=== PATIENT | female | born 1940 | race Caucasian/White ===

== ENCOUNTER 2018-11-10 04:36 | Inpatient (IN) ==
[2018-11-10] MEDS ORDERED: Ipratropium/Albuterol Neb 3 ML IH ONE ×2 (04:44→04:52)
[2018-11-10] MEDS ORDERED: Ipratropium/Albuterol Neb 3 ML ONE (04:52)
[2018-11-10] MEDS ORDERED: methylPREDNISolone 125 MG/2 ML VIAL IVP ONE (05:05)
[2018-11-10 05:19] LABS: Basophils % 0.4 %; Eosinophils # 0.2 K/mcL (0.0-0.6); Hemoglobin 13.4 g/dL (11.5-15.4); Immature Granulocytes % 0.4 % (0-4); Lymphocytes # 1.9 K/mcL (0.6-4.6); Lymphocytes % 22.5 %; Mean Corpuscular HGB Conc 31.9 g/dL (31.6-35.5); Mean Corpuscular Hemoglobin 30.9 pg (28.0-33.3); Mean Corpuscular Volume 96.8 fL (83.0-100.0); Mean Platelet Volume 9.5 fL (9.4-12.4); Monocytes # 0.5 K/mcL (0.0-1.3); Monocytes % 6.2 %; Neutrophils # 5.8 K/mcL (1.6-8.9); Platelet Count 200 K/mcL (140-400); Red Blood Count 4.34 M/mcL (3.82-4.97); Red Cell Distribution Width 12.9 % (11.5-14.5); Segmented Neutrophils % 68.5 %
[2018-11-10 05:22] LABS: VBG HCO3 31 mEq/L (21-27); VBG PCO2 62 mmHg (41-51); VBG PH 7.31 pH Units (7.32-7.42); VBG PO2 129 mmHg (25-50)
--- NOTE | 2018-11-10 05:39 | Emergency Department Note ---
Disposition Clinical Impression: NSTEMI (non-ST elevated myocardial infarction), Acute exacerbation of chronic obstructive airways disease Disposition: Admitted As Inpatient Condition: Fair General Adult HPI - General Chief complaint: ED Shortness of Breath/Dyspnea Stated complaint: NICOL Time Seen by Provider: 11/10/18 04:39 Source: patient, EMS Limitations: no limitations Nursing Notes Reviewed: Yes Vital Signs Reviewed: Yes - History of Present Illness HPI Narrative: 78-year-old female with history of COPD, cardiac stent and lung cancer presenting via EMS with shortness of breath. The patient states over the past 2 days she has had worsening of her shortness of breath, requiring increase in her home oxygen. She is only on oxygen at night but has felt more short of breath throughout the day. In route EMS gave her 2 albuterol nebulizers taking her oxygen saturation from 74-98. She does admit to back pain between her shoulder blades which worsens with movement. She describes it as sharp. Otherwise she denies any fever, chills, cough, congestion chest pain, nausea, vomiting, diarrhea, dysuria, hematuria, abdominal pain. Pain Scale: 5 - Related Data Home Medications Medication Instructions Recorded Confirmed Albuterol Sulfate [Albuterol 2 puff IH Q4HR PRN 05/17/16 11/10/18 Inhaler] Ergocalciferol (VITAMIN D2) 2,000 unit PO DAILY 05/17/16 11/10/18 [Vitamin D2] Fluticasone/Salmeterol [Advair 1 puff IH Q12H 05/17/16 11/10/18 250-50 Diskus] Oxycodone HCl/Acetaminophen 1 tab PO Q8H PRN 05/17/16 11/10/18 [Percocet 5-325 mg Tablet] RX: Aspirin 81 mg PO DAILY 05/17/16 11/10/18 raNITIdine HCl [Zantac] 150 mg PO DAILY PRN 05/17/16 11/10/18 Acetaminophen [Tylenol] 325 - 650 mg PO Q6HR PRN 11/22/17 11/10/18 Metoprolol Succinate [Toprol Xl] 50 mg PO DAILY 11/10/18 11/10/18 RX: Torsemide [Demadex] 20 mg PO DAILY 11/10/18 11/10/18 Allergies Allergy/AdvReac Type Severity Reaction Status Date / Time fish oil Allergy Rash Verified 06/05/18 10:42 influenza virus vaccine ts Allergy Anaphylaxis Verified 06/05/18 10:42 [id number] (36 mos,up) [From Fluarix] mannitol [From Reclast] Allergy Hives Verified 06/05/18 10:42 Neomycin Allergy Rash Verified 06/05/18 10:42 NSAIDS (Non-Steroidal Allergy Rash Verified 06/05/18 10:42 Anti-Inflamma Penicillins [PCN] Allergy Rash Verified 06/05/18 10:42 sulfamethoxazole Allergy Rash Verified 06/05/18 10:42 [From Bactrim] trimethoprim [From Bactrim] Allergy Rash Verified 06/05/18 10:42 water for injection,sterile Allergy Hives Verified 06/05/18 10:42 [From Reclast] zoledronic acid Allergy Hives Verified 06/05/18 10:42 [From Reclast] simvastatin [From Zocor] AdvReac Cramping Verified 06/05/18 10:42 of the Muscles All systems ED: reviewed and negative except as stated. Review of Systems: As Per HPI Constitutional: Denies: fever, chills, weakness, weight change Eyes: Denies: eye pain, eye discharge, vision change Cardiovascular: Reports: dyspnea on exertion. Denies: chest pain, palpitations, edema, syncope Respiratory: Reports: dyspnea. Denies: cough, wheezes, hemoptysis, stridor, sputum production Gastrointestinal: Denies: abdominal pain, nausea, vomiting, diarrhea, constipation, hematemesis, melena, hematochezia Genitourinary: Denies: dysuria, frequency, hematuria, discharge Musculoskeletal: Reports: back pain. Denies: neck pain, joint swelling Integumentary: Denies: rash, abrasion, lesions Neurological: Denies: headache, weakness, numbness, paresthesias Psychiatric: Denies: anxiety, depression, suicidal thoughts, homicidal thoughts, auditory hallucinations, visual hallucinations Endocrine: Denies: fatigue Past Medical History - Past Medical History Medical history: Reports: arthritis, cancer Surgical history: Reports: cholecystectomy, hysterectomy, orthopedic, other Psychiatric history: Reports: no psych history - Social History Smoking Status: Current some day smoker Smokeless Tobacco Status: No Alcohol use: Reports: none, heavy Drug use: Reports: none Physical Exam Patient is significantly tachypnic and working hard to breathe. She is able to complete only a few words for positive to catch her breath. She is currently on oxygen mask and status post 2 DuoNeb treatments. - General Limitations: no limitations General appearance: alert, anxious, in distress - Head Head exam: atraumatic, normocephalic - Eye Eye exam: Present: normal appearance, PERRL - ENT ENT exam: normal exam, normal oropharynx, mucous membranes moist - Neck Neck exam: Present: normal inspection, full ROM, trachea midline - Chest Chest inspection: Present: normal inspection, symmetric chest wall rise. Absent: tenderness, rash - Respiratory Respiratory exam: Present: respiratory distress, wheezes, accessory muscle use, prolonged expiratory phase - Cardiovascular Cardiovascular exam: Present: regular rate, normal rhythm, normal heart sounds - Abdominal Exam Abdominal exam: Present: soft, Non-Tender. Absent: distention, guarding, rebound, rigidity Course Vital Signs Temperature 98.3 F 11/10/18 04:43 Pulse Rate 119 11/10/18 04:43 Respiratory Rate 30 11/10/18 04:43 Blood Pressure 201/110 11/10/18 04:43 O2 Sat by Pulse Oximetry 100 11/10/18 04:43 Temperature 98.3 F 11/10/18 04:43 Pulse Rate 102 11/10/18 07:31 Respiratory Rate 17 11/10/18 07:31 Blood Pressure 121/62 11/10/18 07:31 O2 Sat by Pulse Oximetry 96 11/10/18 07:31 Oxygen Delivery Oxygen Delivery Bipap Medical Decision Making - [facility] Narrative Medical decision making narrative: 78-year-old female with history of lung cancer, cardiac stent, and COPD who presents the emergency department with complaints of shortness of breath. She does have chest pain as well. She is severely tachypnic on initial presentation and working hard to breathe. Initiated 3 duo nebs as well as BiPAP. Cardiac workup including EKG, chest x-ray, and troponin obtained which revealed elevated troponin to 0.10. EKG does show ST depressions in lateral leads. Do believe the patient has a COPD exacerbation with concomitant STEMI versus demand ischemia. Initiated 325 mg aspirin and heparin to cover for ACS. She will require admission for continued workup of her's likely COPD exacerbation, started azithromycin. Discussed the findings with on-call hospitalist who admits the patient. Patient agrees with and understands course of treatment plan including plan for admission. All questions answered. - Lab Data Result diagrams: 11/10/18 05:06 11/10/18 05:06 Lab Results 11/10/18 11/10/18 11/10/18 Range/Units 05:06 05:06 05:17 WBC 8.4 (4.3-11.1) K/mcL RBC 4.34 (3.82-4.97) M/mcL Hgb 13.4 (11.5-15.4) g/dL Hct 42.0 (35.3-44.9) % MCV 96.8 (83.0-100.0) fL MCH 30.9 (28.0-33.3) pg MCHC 31.9 (31.6-35.5) g/dL RDW 12.9 (11.5-14.5) % Plt Count 200 (140-400) K/mcL MPV 9.5 (9.4-12.4) fL Immature Gran % 0.4 (0-4) % Seg Neutrophils % 68.5 % Lymphocytes % 22.5 % Monocytes % 6.2 % Eosinophils % 2.0 % Basophils % 0.4 % Neutrophils # 5.8 (1.6-8.9) K/mcL Lymphocytes # 1.9 (0.6-4.6) K/mcL Monocytes # 0.5 (0.0-1.3) K/mcL Eosinophils # 0.2 (0.0-0.6) K/mcL Basophils # 0.0 (0.0-0.2) K/mcL PT (9.4-12.1) Seconds INR Heparin Anti-Xa, Unfract (0.30-0.70) IU/mL VBG pH 7.31 L (7.32-7.42) pH Units VBG pCO2 62 H (41-51) mmHg VBG pO2 129 H (25-50) mmHg VBG HCO3 31 H (21-27) mEq/L Sodium 141 (136-145) mEq/L Potassium 4.0 (3.5-5.1) mEq/L Chloride 104 (98-107) mEq/L Carbon Dioxide 29 (23-29) mEq/L BUN 20 (8-23) mg/dL Creatinine 1.19 (0.60-1.20) mg/dL Est GFR ( Amer) 53 L (> 60) Est GFR (Non-Af Amer) 44 L (> 60) BUN/Creatinine Ratio 17 (6-26) Glucose 155 H (70-105) mg/dL Calculated Osmolality 298 (280-300) Calcium 9.3 (8.6-10.3) mg/dL Magnesium 1.9 (1.6-2.6) mg/dL Troponin I 0.10 H* (< 0.04) ng/mL 11/10/18 Range/Units 06:57 WBC (4.3-11.1) K/mcL RBC (3.82-4.97) M/mcL Hgb (11.5-15.4) g/dL Hct (35.3-44.9) % MCV (83.0-100.0) fL MCH (28.0-33.3) pg MCHC (31.6-35.5) g/dL RDW (11.5-14.5) % Plt Count (140-400) K/mcL MPV (9.4-12.4) fL Immature Gran % (0-4) % Seg Neutrophils % % Lymphocytes % % Monocytes % % Eosinophils % % Basophils % % Neutrophils # (1.6-8.9) K/mcL Lymphocytes # (0.6-4.6) K/mcL Monocytes # (0.0-1.3) K/mcL Eosinophils # (0.0-0.6) K/mcL Basophils # (0.0-0.2) K/mcL PT 11.0 (9.4-12.1) Seconds INR 1.0 Heparin Anti-Xa, Unfract 0.05 L (0.30-0.70) IU/mL VBG pH (7.32-7.42) pH Units VBG pCO2 (41-51) mmHg VBG pO2 (25-50) mmHg VBG HCO3 (21-27) mEq/L Sodium (136-145) mEq/L Potassium (3.5-5.1) mEq/L Chloride (98-107) mEq/L Carbon Dioxide (23-29) mEq/L BUN (8-23) mg/dL Creatinine (0.60-1.20) mg/dL Est GFR ( Amer) (> 60) Est GFR (Non-Af Amer) (> 60) BUN/Creatinine Ratio (6-26) Glucose (70-105) mg/dL Calculated Osmolality (280-300) Calcium (8.6-10.3) mg/dL Magnesium (1.6-2.6) mg/dL Troponin I (< 0.04) ng/mL - Radiology Data Radiology results reviewed: Yes I reviewed the patient's radiology results. Chest X-Ray 11/10/18 04:47 IMPRESSION: No acute disease identified. D/ / Augustin Camara MD / Augustin Camara MD Interpreting Provider: Augustin Camara MD - EKG Data EKG #1 EKG attestation: Yes I reviewed and interpreted this EKG. EKG results narrative: Sinus tachycardia rate of 1:15. Normal axis. HI 44, QRS 84, QT 324, QTC 449. No evidence of acute ST elevation but there are slight ST depressions in lateral leads. Attestation Statement - Attestation Attestation: Resident Attestation: I examined this patient and my medical decision making was reviewed with the Resident Physician. I agree with the documented findings, disposition and treatment plan as described except to the extent set forth below. We independently had [id number] contact with the patient. 78-year-old female with a history of COPD as well as previous cardiac stent and lobectomy presenting for evaluation of shortness of breath but is been worsening over the last several days area and increasing home oxygen requirement which she typically just wears at night. Complains of chest pain earlier in the day. Patient undergoing workup for COPD exacerbation. Moderate respiratory distress with increased work of breathing and diffuse wheezing with overall decreased air movement bilaterally. No significant peripheral edema. Regular rhythm. Patient was found to have an elevated troponin. EKG has changes within the lateral leads. Given the EKG changes and troponin cardiology was consulted. Patient was placed on heparin and admitted to the hospital service. Heart Score - Score History: Moderately Suspicious EKG: Non Specific repolarisation Disturbance Age: Greater than 65 Risk Factors: Equal/Greater than 3 risk factor or history of atherosclerotic disease Troponin: 1-3x normal limit HEART Score Total: 7
[2018-11-10 05:43] LABS: Calcium 9.3 mg/dL (8.6-10.3); Magnesium 1.9 mg/dL (1.6-2.6); Troponin I 0.1 ng/mL (< 0.04)
[2018-11-10] MEDS ORDERED: *HR* Heparin 5,000 UNIT/ML VIAL IVP STA (05:56)
[2018-11-10] MEDS ORDERED: Aspirin 81 MG TAB.CHEW PO STA (05:56)
[2018-11-10] MEDS ORDERED: *HR* Heparin 5,000 UNIT/ML VIAL IVP PRN ×2 (06:49)
[2018-11-10] MEDS ORDERED: *HR* Heparin 5,000 UNIT/ML VIAL IVP ONE (06:49)
[2018-11-10] MEDS ORDERED: Heparin 25,000 UNIT/500 ML D5W 25,000 UNIT/500 ML BAG IVC SCH (07:00)
[2018-11-10 07:16] LABS: Heparin anti-factor XA UFH 0.05 IU/mL (0.30-0.70)
--- NOTE | 2018-11-10 07:35 | Internal Med History&Physical ---
"Date of Encounter: 11/10/18 Time of Encounter: 09:58 Internal Medicine - H&P: HPI Chief complaint: dyspnea Admitted From: Emergency Dept History of present illness: 78-year-old woman with oxygen dependent COPD, CAD s/p prior PCI, and lung cancer in remission presented via EMS with worsening dyspnea for the last 2 days, requiring increase in her home oxygen, and has been associated with cough with small amount of yellow sputum for 1 day. Also has mild rhinorrhea and transient headache. Symptoms are similar to prior COPD exacerbations. Her O2 sat was 70% for EMS, received multiple bronchodilator nebulizations, and was placed on BiPAP in ER. Her symptoms have improved since arrival to ER and was put on O2 by face mask. On review of systems, she reported that she had mild chest pressure for the last 1 week, which was different in character than her prior anginal symptoms prior to PCI, and has resolved since arrival to the hospital. A 10-point ROs is otherwise negative for headache, dizziness, fevers, chills, n, v, abd pain, d, c, dysuria, focal motor deficits or other symptoms. # Acute on chronic hypoxic resp failure # AECOPD # Active smoker, 0.5 PPD # Hx lung cancer in remission - WBC 8k, CXR no acute abnormality - VBG 7.31 | 62 - Cr 1.1 - Continuous pulse oximetry - Supplemental oxygen and NIPPV with BiPAP as needed - Emanuel q4h today and prn bronchodilator nebulizations - IV Solumedrol, can likely switch to PO prednisone in 1-2 days - Cont azithromycin, oral - resp viral panel, sputum cultures - if no improvement, may need pulm consult # CAD s/p PCI # Non-STEMI, likely type II due to hypoxia, cannot r/o type 1 considering Hx CAD # Transient chest pressure, now resolved - EKG with subtle STD in lateral leads - Troponin 0.1 @ 0500, check serial - repeat EKG - cont ASA 81 - cont metoprolol XL at half the home dose (50 --> 25 mg), can consider switching to carvedilol if it appears to contribute to bronchospasm - cont heparin gtt - considering multiple allergies and acute resp issues, will not start a new medicine / statin at this time, if it appears to be type 1, then will reassess and reconsider - check echo - cardiology consult # GERD Hold ranitidine - Oral PPI while on steroids in hospital # Leg swelling - Hod torsemide today in the setting of acute illness and dry oral mucosa, reassess tomorrow # VTE prophylaxis heparin gtt # Goals of care: Discussed with pt, full code but would not like to have a long code if she is not expected to have a reasonable QoL Past Med Surg Social Fam HX - Past Medical History Medical history: arthritis, cancer Additional medical history: lung cancer Psychiatric history: no psych history - Past Surgical History Surgical History: cholecystectomy, hysterectomy, orthopedic, other Additional surgical history: right upper lung lobectomy - Social History Smoking Status: Current some day smoker Smokeless Tobacco Status: No Alcohol use: none, heavy Drug use: none Internal Medicine - H&P: Meds Albuterol Sulfate [Albuterol Inhaler] 2 puff IH Q4HR PRN 05/17/16 [History] Aspirin 81 mg PO DAILY 05/17/16 [History] Ergocalciferol (VITAMIN D2) [Vitamin D2] 2,000 unit PO DAILY 05/17/16 [History] Fluticasone/Salmeterol [Advair 250-50 Diskus] 1 puff IH Q12H 05/17/16 [History] Oxycodone HCl/Acetaminophen [Percocet 5-325 mg Tablet] 1 tab PO Q8H PRN 05/17/16 [History] raNITIdine HCl [Zantac] 150 mg PO DAILY PRN 05/17/16 [History] Acetaminophen [Tylenol] 325 - 650 mg PO Q6HR PRN 11/22/17 [History] Metoprolol Succinate [Toprol Xl] 50 mg PO DAILY 11/10/18 [History] Torsemide [Demadex] 20 mg PO DAILY 11/10/18 [History] Allergy/AdvReac Type Severity Reaction Status Date / Time fish oil Allergy Rash Verified 06/05/18 10:42 influenza virus vaccine ts Allergy Anaphylaxis Verified 06/05/18 10:42 [id number] (36 mos,up) [From Fluarix] mannitol [From Reclast] Allergy Hives Verified 06/05/18 10:42 Neomycin Allergy Rash Verified 06/05/18 10:42 NSAIDS (Non-Steroidal Allergy Rash Verified 06/05/18 10:42 Anti-Inflamma Penicillins [PCN] Allergy Rash Verified 06/05/18 10:42 sulfamethoxazole Allergy Rash Verified 06/05/18 10:42 [From Bactrim] trimethoprim [From Bactrim] Allergy Rash Verified 06/05/18 10:42 water for injection,sterile Allergy Hives Verified 06/05/18 10:42 [From Reclast] zoledronic acid Allergy Hives Verified 06/05/18 10:42 [From Reclast] simvastatin [From Zocor] AdvReac Cramping Verified 06/05/18 10:42 of the Muscles All Systems PM: A 10-system review of systems was performed and is negative for pertinent findings except as documented above in the HPI. - Constitutional Vitals: Temp Pulse Resp BP Pulse Ox 98.3 F 102 17 121/62 96 11/10/18 04:43 11/10/18 07:31 11/10/18 07:31 11/10/18 07:31 11/10/18 07:31 Exam: awake alert, mild tachypnea, not using accessory muscles of resp no icterus no conjunctival injection dry oral mucosa no nuchal rigidity S1, S2, no MRG, limited due to breath sounds Prolonged expiration, E > 2.5 x I, diffuse wheezing and rhonchi, no rales Soft, NT, ND, no guarding or rebound No ankle edema No calf tenderness No dysarthria, or focal motor deficits Alert, oriented x 3 Internal Med - H&P Results - Labs CBC & Chem 7: 11/10/18 05:06 11/10/18 05:06 Labs: Short CBC 11/10/18 Range/Units 05:06 WBC 8.4 (4.3-11.1) K/mcL Hgb 13.4 (11.5-15.4) g/dL Hct 42.0 (35.3-44.9) % Plt Count 200 (140-400) K/mcL Neutrophils # 5.8 (1.6-8.9) K/mcL BMP 11/10/18 05:06 Sodium 141 Potassium 4.0 Chloride 104 Carbon Dioxide 29 BUN 20 Creatinine 1.19 Glucose 155 H Calcium 9.3 Cardiac Enzymes 11/10/18 Range/Units 05:06 Troponin I 0.10 H* (< 0.04) ng/mL - ABG Interpretation ABG results: 11/10/18 05:17 VBG pH 7.31 L VBG pCO2 62 H VBG pO2 129 H VBG HCO3 31 H - Impressions ITS Impressions Chest X-Ray 11/10/18 04:47 IMPRESSION: No acute disease identified. D/ / Augustin Camara MD / Augustin Camara MD Interpreting Provider: Augustin Camara MD - Time Spent With Patient Total time spent is greater than 50% in coordination of care (as documented) at patient's floor/unit and/or counseling patient:"
[2018-11-10] MEDS ORDERED: Azithromycin 500 MG in D5% in Water 250 ML IVPB ONE (07:36)
[2018-11-10] MEDS ORDERED: Acetaminophen 325 MG TABLET PO PRN (10:52)
[2018-11-10] MEDS ORDERED: Albuterol 2.5 MG/3 ML NEBULIZER IH PRN (10:55)
[2018-11-10] MEDS: Ipratropium/Albuterol Neb 3 ML IH SCH ×4 (12:08→23:51)
[2018-11-10] MEDS: MethylPREDNISolone 40 MG/ML VIAL IVP SCH ×3 (12:28→22:50)
[2018-11-10] MEDS: *HR* OxyCODONE/APAP 5/325 TABLET PO PRN (22:50)
[2018-11-11] MEDS: Ipratropium/Albuterol Neb 3 ML IH SCH ×6 (04:14→23:21)
[2018-11-11 04:44] LABS: Hematocrit 36.9 % (35.3-44.9); Hemoglobin 12.1 g/dL (11.5-15.4); Immature Granulocytes % 0.2 % (0-4); Lymphocytes # 0.6 K/mcL (0.6-4.6); Lymphocytes % 10.2 %; Mean Corpuscular HGB Conc 32.8 g/dL (31.6-35.5); Mean Corpuscular Hemoglobin 31.7 pg (28.0-33.3); Mean Corpuscular Volume 96.6 fL (83.0-100.0); Monocytes # 0.2 K/mcL (0.0-1.3); Monocytes % 3.7 %; Neutrophils # 4.7 K/mcL (1.6-8.9); Platelet Count 191 K/mcL (140-400); Red Blood Count 3.82 M/mcL (3.82-4.97); Red Cell Distribution Width 12.8 % (11.5-14.5); Segmented Neutrophils % 85.9 %
[2018-11-11 04:47] LABS: VBG HCO3 28 mEq/L (21-27); VBG PCO2 45 mmHg (41-51); VBG PO2 142 mmHg (25-50)
[2018-11-11 05:04] LABS: BUN/Creatinine Ratio 26 (6-26); Blood Urea Nitrogen 23 mg/dL (8-23); Calcium 9.8 mg/dL (8.6-10.3); Carbon Dioxide 25 mEq/L (23-29); Chloride 105 mEq/L (98-107); Glucose 168 mg/dL (70-105); Osmolality,Calculated 300 (280-300); Potassium 3.6 mEq/L (3.5-5.1); Sodium 141 mEq/L (136-145); eGFR For Non-African Americans > 60 (> 60)
[2018-11-11] MEDS: MethylPREDNISolone 40 MG/ML VIAL IVP SCH ×4 (06:34→23:52)
[2018-11-11] MEDS: Azithromycin 250 MG TABLET PO SCH (07:52)
[2018-11-11] MEDS: Aspirin 81 MG TAB.CHEW PO SCH (07:52)
[2018-11-11] MEDS: Metoprolol XL (24 HR) Succ 50 MG TAB.ER.24H PO SCH (07:52)
[2018-11-11] MEDS ORDERED: Metoprolol XL (24 HR) Succ 25 MG TAB.ER.24H PO SCH (09:00)
--- NOTE | 2018-11-11 11:02 | Internal Med Progress Note ---
Hospitalist Progress Note - Encounter Date of Encounter: 11/11/18 Time of Encounter: 11:02 - Subjective Interval History: Feeling better and shortness of breath. High flow oxygen by nasal cannula 5 L with SPO2 95%. at bedside. Reviewed the lab with trending down troponin. Denies fever chills chest pain abdominal pain diarrhea urinary complaint. Patient complained nausea, fatigue, cough. - Exam Vitals: Temp Pulse Resp BP Pulse Ox 97.6 F 118 13 149/96 99 11/11/18 07:16 11/11/18 08:00 11/11/18 08:04 11/11/18 08:00 11/11/18 08:04 Exam: General appearance: No acute distress but is still get out of breath while completing a sentence. High flow oxygen. at bedside. Head exam: Atraumatic Eye exam: EOMI, PERRLA ENT exam: Moist oral mucosa Neck nontender, supple Respiratory exam: Bilateral wheezing scattered but no crepitation Cardiovascular exam: Tachycardia with regular rhythm, no systolic murmur Abdominal exam: Soft, nontender, nondistended, positive bowel sounds Extremities exam: No calf tenderness, no pedal edema Present: Skin-no rash, warm, dry, intact Neurological exam: Alert, awake, oriented 3, CN II-XII intact, no focal deficits. No facial droop. Normal speech. - Assessment and Plan (1) Acute exacerbation of chronic obstructive airways disease Current Visit: Yes Status: Acute Assessment and Plan: History of COPD on 2 L oxygen at home. Patient was on BiPAP initially but now weaning down to high flow oxygen. Continue IV Solu-Medrol, DuoNeb, Zithromax. Respiratory viral panel and urine Legionella and pneumococcus ordered. Chest x- ray with no acute finding. Consulted coal inspector (2) NSTEMI (non-ST elevated myocardial infarction) Current Visit: Yes Status: Acute Assessment and Plan: Initial troponin 0.1 and now trending down. EKG with subtle ST depression in lateral leads. Continue aspirin beta gina, nitroglycerin when necessary, heparin drip. Echocardiogram ordered. Consulted plastics factory worker. No active chest pain at this time. (3) CAD (coronary artery disease) Current Visit: Yes Status: Acute Assessment and Plan: Status post PCI in 2007. (4) Cancer of right lung Current Visit: No Status: Chronic Assessment and Plan: In remission for last several years. Patient is to follow oncologist Dr. galvan. (5) DVT prophylaxis Current Visit: Yes Status: Acute Assessment and Plan: Heparin drip - Time Spent with Patient Total time spent is greater than 50% in coordination of care (as documented) at patient's floor/unit and/or counseling patient: 25 - 35 minutes Plan of Care Discussed with: family Internal Medicine: Result - Labs CBC & Chem 7: 11/11/18 04:08 11/11/18 04:08 Labs: Short CBC 11/11/18 Range/Units 04:08 WBC 5.4 (4.3-11.1) K/mcL Hgb 12.1 (11.5-15.4) g/dL Hct 36.9 (35.3-44.9) % Plt Count 191 (140-400) K/mcL Neutrophils # 4.7 (1.6-8.9) K/mcL BMP 11/11/18 04:08 Sodium 141 Potassium 3.6 Chloride 105 Carbon Dioxide 25 BUN 23 Creatinine 0.89 Glucose 168 H Calcium 9.8 Cardiac Enzymes 11/10/18 11/11/18 Range/Units 12:30 04:08 Troponin I 0.11 H* 0.05 H* (< 0.04) ng/mL - ABG Interpretation ABG results: PT/INR, D-dimer PT 11.0 Seconds (9.4-12.1) 11/10/18 06:57 Consult Discharge Plan - Plan Referrals: Shashi Garcia MD [Primary Care Provider] - (3) CAD (coronary artery disease) Qualifiers: Coronary Disease-Associated Artery/Lesion type: unspecified vessel or lesion type [place] vs. transplanted heart: unspecified whether [place] or transplanted heart Associated angina: angina presence unspecified Qualified Code(s): I25.10 - Atherosclerotic heart disease of [place] coronary artery without angina pectoris (4) Cancer of right lung Qualifiers: Lung location: unspecified part of lung Qualified Code(s): C34.91 - Malignant neoplasm of unspecified part of right bronchus or lung
[2018-11-11] MEDS: *HR* OxyCODONE/APAP 5/325 TABLET PO PRN ×2 (12:11→21:06)
[2018-11-11] MEDS ORDERED: Isovue-370 500 ML INFUS..BTL IV ONE (15:23)
--- NOTE | 2018-11-11 15:53 | Pulmonology Consult Note ---
Date of Encounter: 11/11/18 Time of Encounter: 15:49 Assessment and Plan (1) Acute and chronic respiratory failure with hypoxia Current Visit: Yes Status: Acute In conclusion this is a 78-year-old woman with a past medical history of tobacco abuse COPD and lung cancer status post right upper lobe lobectomy for stage II A lung cancer (non-small cell lung cancer-adeno CA). She presented with severe shortness of breath with wheezing on examination consistent with COPD exacerbations requiring high levels of supplemental oxygen and much is 6 L high flow nasal cannula and has required BiPAP for work of breathing she remains persistently tachycardic with evidence of mild troponin elevation with concern of an STEMI. She has a history of coronary artery disease. Overall picture like most consistent with COPD exacerbation likely from viral respiratory infection. I am concerned with her history of malignancy and persistent tachycardia along with the degree of hypoxia and troponin elevation that pulmonary embolus is in the differential. But likely a troponin elevation secondary to demand ischemia doubt ACS picture but cardiology has been consulted she is currently on heparin infusion for this reason I reviewed her echocardiogram which is without evidence of left ventricular dysfunction or right heart strain Recs: -CTA Chest stat to rule out pulmonary embolus the lack of right heart strain on echocardiogram does not preclude acute PE and would need the results this study prior to discontinuation of heparin unless contraindication such as bleeding arises. This would also allow us to evaluate further underlying lung parenchyma for infiltrative process -Sputum culture was not obtained as well as blood culture -She is currently on macrolide antibiotic which is reasonable given its anti- inflammatory properties exercise caution with known history of coronary artery disease and would monitor for any sort of the QT prolongation -Respiratory infection panel has been ordered but not collected -Agree with continuation of schedule bronchodilators DuoNeb nebs every 4 hours with every one hour albuterol as needed -Patient will need IV steroids for the course of the day 40 mg twice a day of's Solu-Medrol should be sufficient with transition to prednisone by mouth in the next 24-48 hours patient will need a prolonged taper of steroids over the next 2 weeks -Symbicort 160/4.52 puffs twice a day -Wean FiO2 to keep saturation greater than 88% around 92% I suspect she will need home-going oxygen and walking pulse oximetry prior to discharge -BiPAP as needed for work of breathing -Outpatient pulmonary follow-up in the next 2-4 weeks to establish with our clinic and optimize her respiratory medications and further evaluation -Tobacco cessation counseling given to the patient Thank you for the consultation please call with any questions (2) Cancer of right lung Current Visit: No Status: Chronic Qualifiers: Lung location: unspecified part of lung Qualified Code(s): C34.91 - Malignant neoplasm of unspecified part of right bronchus or lung (3) NSTEMI (non-ST elevated myocardial infarction) Current Visit: Yes Status: Acute (4) Acute exacerbation of chronic obstructive airways disease Current Visit: Yes Status: Acute (5) CAD (coronary artery disease) Current Visit: Yes Status: Acute Qualifiers: Coronary Disease-Associated Artery/Lesion type: unspecified vessel or lesion type [place] vs. transplanted heart: unspecified whether [place] or transplanted heart Associated angina: angina presence unspecified Qualified Code(s): I25.10 - Atherosclerotic heart disease of [place] coronary artery without angina pectoris (6) DVT prophylaxis Current Visit: Yes Status: Acute History of Present Illness Consult date: 11/11/18 Requesting physician: Brionna Willett Reason for consult: COPD Chief complaint: Difficulty in Breathing History of present illness: This is a pleasant 78-year-old woman with a past medical history of COPD Stage IIA resected non-small cell lung cancer, CAD status post PCI current smoker who states that she had a respiratory infection for about a week both her and her were affected and unfortunately her symptoms became much more severe and occluding chest congestion shortness of breath and nonproductive cough symptoms became so severe including wheezing prior to admission to ED that she had to pull her called the squad. She was recently started on oxygen by her PCP but prior to that she is in no supple no oxygen requirement. Long-standing smoking history and exposure to industrial pollutants at the local [employer]. No exotic animal exposure. Denies any hemoptysis she did have sharp pain in her back between her shoulders when she presented. Per medical record and the EMS report oxygen saturation is was in the 70s when and they had arrived and had improved after nebulized breathing treatments she was noted to be tachycardic with elevated troponin on admission to the hospital no significant leukocytosis and was afebrile was treated with aggressive bronchodilator regimen and which improved her symptoms to some degree but she was still requiring BiPAP for work of breathing. She was on high flow oxygen as much as 6 L and needed to liters with a nonrebreather mask when she was not requiring BiPAP. Chest x-ray was without acute focal process. Pulmonary was consulted for further evaluation Past Med Surg Social Fam HX - Past Medical History Medical history: arthritis, cancer Additional medical history: lung cancer Psychiatric history: no psych history - Past Surgical History Surgical History: cholecystectomy, hysterectomy, orthopedic, other Additional surgical history: right upper lung lobectomy - Social History Smoking Status: Current some day smoker Smokeless Tobacco Status: No Alcohol use: none, heavy Drug use: none Medications and Allergies Albuterol Sulfate [Albuterol Inhaler] 2 puff IH Q4HR PRN 05/17/16 [History] Aspirin 81 mg PO DAILY 05/17/16 [History] Ergocalciferol (VITAMIN D2) [Vitamin D2] 2,000 unit PO DAILY 05/17/16 [History] Fluticasone/Salmeterol [Advair 250-50 Diskus] 1 puff IH Q12H 05/17/16 [History] Oxycodone HCl/Acetaminophen [Percocet 5-325 mg Tablet] 1 tab PO Q8H PRN 05/17/16 [History] raNITIdine HCl [Zantac] 150 mg PO DAILY PRN 05/17/16 [History] Acetaminophen [Tylenol] 325 - 650 mg PO Q6HR PRN 11/22/17 [History] Metoprolol Succinate [Toprol Xl] 50 mg PO DAILY 11/10/18 [History] Torsemide [Demadex] 20 mg PO DAILY 11/10/18 [History] Allergy/AdvReac Type Severity Reaction Status Date / Time fish oil Allergy Rash Verified 06/05/18 10:42 influenza virus vaccine ts Allergy Anaphylaxis Verified 06/05/18 10:42 [id number] (36 mos,up) [From Fluarix] mannitol [From Reclast] Allergy Hives Verified 06/05/18 10:42 Neomycin Allergy Rash Verified 06/05/18 10:42 NSAIDS (Non-Steroidal Allergy Rash Verified 06/05/18 10:42 Anti-Inflamma Penicillins [PCN] Allergy Rash Verified 06/05/18 10:42 sulfamethoxazole Allergy Rash Verified 06/05/18 10:42 [From Bactrim] trimethoprim [From Bactrim] Allergy Rash Verified 06/05/18 10:42 water for injection,sterile Allergy Hives Verified 06/05/18 10:42 [From Reclast] zoledronic acid Allergy Hives Verified 06/05/18 10:42 [From Reclast] simvastatin [From Zocor] AdvReac Cramping Verified 06/05/18 10:42 of the Muscles All Systems: The remainder of the systems were reviewed and are negative Physical Examination Vital Signs: Vital Signs, Last 4 Hours Temp Pulse Resp BP Pulse Ox 11/11/18 11:54 97.4 F L 115 20 123/48 94 General appearance: other (Resting comfortably sitting up in bed speaking in full sentences) Eyes: nonicteric ENT: oropharynx moist Neck: supple Effort: mildly labored Auscultation: bilateral: diminished breath sounds, wheezes (faint expiratory wheezes with prolonged expiratory phase ) Cardiovascular: regular rate and rhythm Gastrointestinal: normoactive bowel sounds, soft, non-tender Integumentary: normal Extremities: no edema, no clubbing, pink and warm Musculoskeletal: no deformities normal mental status, non-focal exam mood appropriate Results - Laboratory Findings CBC and BMP: 11/11/18 04:08 11/11/18 04:08 PT/INR, D-dimer PT 11.0 Seconds (9.4-12.1) 11/10/18 06:57 Abnormal lab findings: Abnormal lab results VBG pO2 142 mmHg (25-50) H 11/11/18 04:45 VBG HCO3 28 mEq/L (21-27) H 11/11/18 04:45 Glucose 168 mg/dL (70-105) H 11/11/18 04:08 Troponin I 0.05 ng/mL (< 0.04) H* 11/11/18 04:08 - Diagnostic Findings Chest x-ray: report reviewed, image reviewed - Clinical Findings Intake & Output: Intake & Output 11/10/18 11/11/18 11/11/18 23:59 07:59 15:59 Intake Total 220 / 220 105 / 105 480 / 480 Output Total 250 / 250 250 / 250 Balance -30 / -30 -145 / -145 480 / 480 Weight 73.5 kg Consult Discharge Plan - Plan Referrals: Shashi Garcia MD [Primary Care Provider] -
--- NOTE | 2018-11-11 16:29 | Cardiology Consult Note ---
<ToribioCourt J - Last Filed: 11/11/18 16:25> Date of Encounter: 11/11/18 Time of Encounter: 15:00 Assessment and Plan (1) Elevated troponin Current Visit: Yes Status: Acute Per cardiology: -Mild, adynamic troponin in the setting of COPD exacerbation. -Denies chest pain. -no acute ECG changes noted. -TTE iwth LVEF 70%, no segmental wall motion abnormalities noted. -02/2016 stress negative. -Demand ischemia, no cardaic rehab consult warranted. -From cardiology standpoint, ok to discontinue heparin drip. (2) CAD (coronary artery disease) Current Visit: Yes Status: Chronic Per cardiology: -Known CAD s/p PCI 2007 to LAD. -ON asa, BB. Not on statin due to intolerance. Qualifiers: Coronary Disease-Associated Artery/Lesion type: [place] artery [place] vs. transplanted heart: [place] heart Associated angina: without angina Qualified Code(s): I25.10 - Atherosclerotic heart disease of [place] coronary artery without angina pectoris Discussion w patient/family: The assessment and plan as outlined above was discussed with the patient who expressed understanding and agreement. All questions were answered. Thank you for involving us in the care of your patient. Please call with any questions. Discussed and reviewed with History of Present Illness Consult date: 11/10/19 Requesting physician: Yevgeniy Small Consult reason: elevated trop Chief complaint: shortness of breath History of present illness: Ms. Nagi Walters is a 78 year old female with a relevant past medical history of CAD s/p PCI 2007, COPD, HTN, HLD, lung CA, GERD who presented to [facility] with complaints of worsening shortness of breath. Patient reports upper respiratory symptoms. Cardiology consulted for elevated troponin. Patient denies chest pain. Past Med Surg Social Fam HX - Past Medical History Attestation: Yes The following information was validated with the patient. Source: patient Medical history: arthritis, cancer, coronary artery disease, GERD, hyperlipidemia, hypertension Additional medical history: lung cancer Psychiatric history: no psych history - Past Surgical History Surgical History: cholecystectomy, hysterectomy, orthopedic, other Additional surgical history: right upper lung lobectomy - Social History Smoking Status: Current some day smoker Smokeless Tobacco Status: No Alcohol use: none, heavy Drug use: none Medications and Allergies Albuterol Sulfate [Albuterol Inhaler] 2 puff IH Q4HR PRN 05/17/16 [History] Aspirin 81 mg PO DAILY 05/17/16 [History] Ergocalciferol (VITAMIN D2) [Vitamin D2] 2,000 unit PO DAILY 05/17/16 [History] Fluticasone/Salmeterol [Advair 250-50 Diskus] 1 puff IH Q12H 05/17/16 [History] Oxycodone HCl/Acetaminophen [Percocet 5-325 mg Tablet] 1 tab PO Q8H PRN 05/17/16 [History] raNITIdine HCl [Zantac] 150 mg PO DAILY PRN 05/17/16 [History] Acetaminophen [Tylenol] 325 - 650 mg PO Q6HR PRN 11/22/17 [History] Metoprolol Succinate [Toprol Xl] 50 mg PO DAILY 11/10/18 [History] Torsemide [Demadex] 20 mg PO DAILY 11/10/18 [History] Allergy/AdvReac Type Severity Reaction Status Date / Time fish oil Allergy Rash Verified 06/05/18 10:42 influenza virus vaccine ts Allergy Anaphylaxis Verified 06/05/18 10:42 [id number] (36 mos,up) [From Fluarix] mannitol [From Reclast] Allergy Hives Verified 06/05/18 10:42 Neomycin Allergy Rash Verified 06/05/18 10:42 NSAIDS (Non-Steroidal Allergy Rash Verified 06/05/18 10:42 Anti-Inflamma Penicillins [PCN] Allergy Rash Verified 06/05/18 10:42 sulfamethoxazole Allergy Rash Verified 06/05/18 10:42 [From Bactrim] trimethoprim [From Bactrim] Allergy Rash Verified 06/05/18 10:42 water for injection,sterile Allergy Hives Verified 06/05/18 10:42 [From Reclast] zoledronic acid Allergy Hives Verified 06/05/18 10:42 [From Reclast] simvastatin [From Zocor] AdvReac Cramping Verified 06/05/18 10:42 of the Muscles All Systems Review: The remainder of the systems were reviewed and are negative - Cardiovascular Cardiovascular: as per HPI, dyspnea on exertion Physical Examination Vital Signs Temperature 98.3 F 11/10/18 04:43 Pulse Rate 119 11/10/18 04:43 Respiratory Rate 30 11/10/18 04:43 Blood Pressure 201/110 11/10/18 04:43 O2 Sat by Pulse Oximetry 100 11/10/18 04:43 Temperature 97.4 F L 11/11/18 11:54 Pulse Rate 115 11/11/18 11:54 Respiratory Rate 20 11/11/18 11:54 Blood Pressure 123/48 11/11/18 11:54 O2 Sat by Pulse Oximetry 94 11/11/18 11:54 Oxygen Delivery Oxygen Delivery Non Rebreather Mask General: Conversant, No Apparent Distress HEENT: Atraumatic, Normocephaly, Mucus Membranes Moist Neck: No JVD, Normal carotid pulses Cardiac: Reg Rate and Rhythm, Normal S1 and S2, No Murmur Lungs: Other (Lung sounds with expiratory wheezes. ) Neuro: Alert and responsive, No focal deficits noted Abdomen: Soft, Non-Tender Skin: No rashes noted on visualized skin Musculoskeletal: No Chest Wall Tenderness Extremities: No Clubbing, No Cyanosis, No Edema, Normal Pulses Results 11/11/18 04:08 11/11/18 04:08 Lab Results Impressions Echocardiogram 11/11/18 11:05 Impressions: LVEF 70%. Normal LV chamber size, wall thickness and systolic function. Indeterminate diastolic function. Normal right ventricular structure and function. No significant valvular dysfunction. No evidence of pulmonary hypertension. Left Ventricular Wall Motion: Rest Echo Findings All wall segments showed normal motion. Findings: Study Quality * Technically adequate exam. ECG Findings * Atrial fibrillation. Left Ventricle * LVEF 70%. * Normal LV chamber size, wall thickness and systolic function. * Indeterminate diastolic function. Right Ventricle * Normal right ventricular structure and function. Left Atrium * Normal left atrial size. Right Atrium * Normal right atrial size. Interatrial Septum * Interatrial septum not well evaluated. Aortic Valve * Trileaflet aortic valve. * Mildly calcified aortic valve leaflets. * No aortic stenosis. * No aortic regurgitation. Mitral Valve * Normal mitral valve structure. * No mitral stenosis. * Trace mitral regurgitation. Tricuspid Valve * Normal tricuspid valve structure. * No tricuspid stenosis. * Trace tricuspid regurgitation. * Unable to estimate RVSP due to lack of TR jet. * No evidence of pulmonary hypertension. * Estimated RA pressure is 3 mmHg. Pulmonic Valve * Pulmonic valve is not well visualized. * No pulmonic stenosis. * No pulmonic regurgitation. Aorta * Normally sized aortic root. Pericardium * The pericardium appears normal. * Appearance is consistent with a {type} mitral valve replacement. Function appears {function{. IVC * Normal IVC dimensions and inspiratory collapse. Active Medications Acetaminophen (Tylenol) 325 - 650 mg PO Q6HR PRN PRN Reason: Pain Stop: 05/12/19 10:53 Albuterol Sulfate (Proventil Neb) 2.5 mg IH Q2H PRN PRN Reason: Shortness Of Breath/Wheezing Stop: 05/12/19 10:56 Albuterol/Ipratropium (Duoneb) 3 ml IH [id number] [facility] Stop: 05/12/19 11:01 Last Admin: 11/11/18 11:39 Dose: 3 ml Aspirin (Aspirin) 81 mg PO DAILY [facility] Stop: 05/13/19 09:01 Last Admin: 11/11/18 07:52 Dose: 81 mg Azithromycin (Zithromax) 500 mg PO DAILY [facility] Stop: 05/13/19 09:01 Last Admin: 11/11/18 07:52 Dose: 500 mg Heparin Sodium (Porcine) (Heparin) 4,000 unit IVP Q6HR PRN PRN Reason: SEE COMMENTS Stop: 05/12/19 06:50 Heparin Sodium (Porcine) (Heparin) 2,000 unit IVP Q6H PRN PRN Reason: SEE COMMENTS Stop: 05/12/19 06:50 Methylprednisolone (Solu-Medrol) 40 mg IVP Q6HR [facility] Stop: 05/12/19 12:01 Last Admin: 11/11/18 12:12 Dose: 40 mg Metoprolol Succinate (Toprol Xl) 50 mg PO DAILY [facility] Stop: 05/13/19 09:01 Last Admin: 11/11/18 07:52 Dose: 50 mg Omeprazole (Prilosec) 40 mg PO DAILY@0630 [facility]; Protocol Stop: 05/13/19 06:31 Last Admin: 11/11/18 06:32 Dose: 40 mg Oxycodone/Acetaminophen (Percocet 5/325) 1 each PO Q8H PRN PRN Reason: Pain Stop: 05/12/19 22:13 Last Admin: 11/11/18 12:11 Dose: 1 each Torsemide (Demadex) 20 mg PO DAILY [facility] Stop: 05/14/19 09:01 Laboratory Tests 11/10/18 11/10/1811/11/18 05:06 12:30 04:08 Troponin I 0.10 H* 0.11 H* 0.05 H* - Imaging and Cardiology Chest Xray: report reviewed Stress Test: report reviewed Echo: report reviewed - EKG Interpretation EKG results cardiology: personally reviewed (ECG with SR.), other (Telemetry reviewed with average HR previous 12 hours noted to be 103, ST. PVCs, PACs noted.) Consult Discharge Plan - Plan Referrals: Shashi Garcia MD [Primary Care Provider] - <Damir Roberson - Last Filed: 11/12/18 08:34> Date of Encounter: 11/12/18 - Attending Attestation Patient was seen and evaluated independently by me. Findings, assessment and plan were discussed at length with patient, questions answered. Agree with nurse practitioner's/resident's documentation. Addition as follows, 78yoCF ho CAD remote PCI, COPD, lung Ca p.w progressive SALINAS with URI. No CP, palpitations. No ischemic ECG changes, trop peak 0.1, TTE nl EF w/o RMWA. Exam sig for B/L expiratory wheeze. A: COPD exacerbation Type II NSTEMI, mild troponin elevation CAD no angina P: c/w ASA, BB no further inpatient cardiac w/u Damir Roberson MD, PhD Assessment and Plan Discussion w patient/family: The assessment and plan as outlined above was discussed with the patient and/or family members who expressed understanding and agreement. All questions were answered. Thank you for involving us in the care of your patient. Please call with any questions. History of Present Illness History of present illness: Ms. Nagi Walters is a 78 year old female All Systems Review: The remainder of the systems were reviewed and are negative Physical Examination Vital Signs, Last 4 Hours Temp Pulse Resp BP Pulse Ox 11/12/18 06:56 97.9 F 107 20 130/70 98 Results 11/11/18 04:08 11/11/18 04:08
[2018-11-11 18:13] LABS: Adenovirus Not Detected (Not Detect); Bordetella Pertussis Not Detected (Not Detect); Chlamydophila pneumoniae Not Detected (Not Detect); Coronavirus 229E Not Detected (Not Detect); Coronavirus HKU1 Not Detected (Not Detect); Coronavirus NL63 Not Detected (Not Detect); Coronavirus OC43 Not Detected (Not Detect); Human Metapneumovirus Not Detected (Not Detect); Human Rhinovirus/Enterovirus Not Detected (Not Detect); Influenza A Subtype 2009 H1 Not Detected (Not Detect); Influenza A Untypeable Not Detected (Not Detect); Influenza B Not Detected (Not Detect); Mycoplasma pneumoniae Not Detected (Not Detect); Parainfluenza Virus 1 Not Detected (Not Detect); Parainfluenza Virus 2 Not Detected (Not Detect); Parainfluenza Virus 3 Not Detected (Not Detect); Parainfluenza Virus 4 Not Detected (Not Detect); Respiratory Syncytial Virus DETECTED (Not Detect)
[2018-11-12] MEDS: Ipratropium/Albuterol Neb 3 ML IH SCH ×6 (04:02→23:49)
[2018-11-12] MEDS: MethylPREDNISolone 40 MG/ML VIAL IVP SCH ×2 (05:42→17:28)
[2018-11-12] MEDS ORDERED: Acetaminophen 325 MG TABLET PO PRN (09:07)
[2018-11-12] MEDS: Torsemide 20 MG TABLET PO SCH (09:25)
[2018-11-12] MEDS: Aspirin 81 MG TAB.CHEW PO SCH (09:25)
[2018-11-12] MEDS: Azithromycin 250 MG TABLET PO SCH (09:25)
[2018-11-12] MEDS: Metoprolol XL (24 HR) Succ 50 MG TAB.ER.24H PO SCH (09:25)
[2018-11-12] MEDS: *HR* OxyCODONE/APAP 5/325 TABLET PO PRN ×2 (09:32→20:14)
--- NOTE | 2018-11-12 11:04 | Internal Med Progress Note ---
Hospitalist Progress Note - Encounter Date of Encounter: 11/12/18 Time of Encounter: 11:00 - Subjective Interval History: Feeling better inshortness of breath. High flow oxygen by nasal cannula 3.5 L at this time. Her oxygen level has been fluctuant and is still need close observation. at bedside. Reviewed the lab and consulted note Denies fever chills chest pain abdominal pain diarrhea urinary complaint. Patient complained nausea, fatigue, cough. - Exam Vitals: Temp Pulse Resp BP Pulse Ox 97.9 F 94 20 130/70 97 11/12/18 06:56 11/12/18 09:00 11/12/18 09:00 11/12/18 06:56 11/12/18 09:00 Exam: General appearance: No acute distress but is still get out of breath while completing a sentence-better. High flow oxygen. Head exam: Atraumatic Eye exam: EOMI, PERRLA ENT exam: Moist oral mucosa Neck nontender, supple Respiratory exam: Bilateral wheezing scattered but no crepitation -better Cardiovascular exam: Mild Tachycardia with regular rhythm, no systolic murmur Abdominal exam: Soft, nontender, nondistended, positive bowel sounds Extremities exam: No calf tenderness, no pedal edema Present: Skin-no rash, warm, dry, intact Neurological exam: Alert, awake, oriented 3, CN II-XII intact, no focal deficits. No facial droop. Normal speech. - Assessment and Plan (1) Acute exacerbation of chronic obstructive airways disease Current Visit: Yes Status: Acute Assessment and Plan: History of COPD on 2 L oxygen at home. On admission Patient was on BiPAP initially but now weaning down to high flow oxygen. Continue IV Solu-Medrol, DuoNeb, Zithromax. Respiratory viral panel positive for rhinovirus urine Legionella and pneumococcus negative Chest x-ray with no acute finding. Decrease IV Solu-Medrol 40 mg twice Onboard respiratory therapist CT chest ruled out PE but 5 into 9 mm left sided lung nodule - recommended for follow-up in 3-6 months on OPD basis On board documentation analyst-follow his recommendation Will keep patient in ICU for close monitoring as he still has labile SPO2 saturation in need close monitoring. (2) NSTEMI (non-ST elevated myocardial infarction) Current Visit: Yes Status: Acute Assessment and Plan: Initial troponin 0.1 and now trending down. EKG with subtle ST depression in lateral leads. Continue aspirin beta gina, nitroglycerin when necessary Echocardiogram with EF 70%, indeterminate diastolic function otherwise no acute finding. Consulted fur comber-does not think cardiac related event but raised troponin due to demand ischemia and no further cardiology follow-up. Is stopped heparin drip. No active chest pain at this time. (3) CAD (coronary artery disease) Current Visit: Yes Status: Chronic Assessment and Plan: Status post PCI in 2007. (4) Cancer of right lung Current Visit: No Status: Chronic Assessment and Plan: In remission for last several years. Patient is to follow oncologist Dr. galvan. (5) DVT prophylaxis Current Visit: Yes Status: Acute Assessment and Plan: Heparin drip stopped. Will start subcutaneous heparin - Time Spent with Patient Total time spent is greater than 50% in coordination of care (as documented) at patient's floor/unit and/or counseling patient: 25 - 35 minutes Plan of Care Discussed with: patient Internal Medicine: Result - Labs CBC & Chem 7: 11/11/18 04:08 11/11/18 04:08 - ABG Interpretation ABG results: PT/INR, D-dimer PT 11.0 Seconds (9.4-12.1) 11/10/18 06:57 - Impressions Impressions Echocardiogram 11/11/18 11:05 Impressions: LVEF 70%. Normal LV chamber size, wall thickness and systolic function. Indeterminate diastolic function. Normal right ventricular structure and function. No significant valvular dysfunction. No evidence of pulmonary hypertension. Left Ventricular Wall Motion: Rest Echo Findings All wall segments showed normal motion. Findings: Study Quality * Technically adequate exam. ECG Findings * Atrial fibrillation. Left Ventricle * LVEF 70%. * Normal LV chamber size, wall thickness and systolic function. * Indeterminate diastolic function. Right Ventricle * Normal right ventricular structure and function. Left Atrium * Normal left atrial size. Right Atrium * Normal right atrial size. Interatrial Septum * Interatrial septum not well evaluated. Aortic Valve * Trileaflet aortic valve. * Mildly calcified aortic valve leaflets. * No aortic stenosis. * No aortic regurgitation. Mitral Valve * Normal mitral valve structure. * No mitral stenosis. * Trace mitral regurgitation. Tricuspid Valve * Normal tricuspid valve structure. * No tricuspid stenosis. * Trace tricuspid regurgitation. * Unable to estimate RVSP due to lack of TR jet. * No evidence of pulmonary hypertension. * Estimated RA pressure is 3 mmHg. Pulmonic Valve * Pulmonic valve is not well visualized. * No pulmonic stenosis. * No pulmonic regurgitation. Aorta * Normally sized aortic root. Pericardium * The pericardium appears normal. * Appearance is consistent with a {type} mitral valve replacement. Function appears {function{. IVC * Normal IVC dimensions and inspiratory collapse. Chest CTA 11/11/18 15:23 IMPRESSION: No evidence of pulmonary embolism or acute pulmonary abnormality. New 5 x 9 mm subpleural nodular density posteromedial left lower lobe. This could represent inflammatory nodule or possible malignancy-metastatic disease. Recommend follow-up noncontrast CT scan of the chest in 3-6 months. RECOMMENDATIONS: Fleischner Society guidelines for follow-up and management of incidentally detected pulmonary nodules: Single Solid Nodule: Nodule size equals 6-8 mm In a low-risk patient, CT at 6-12 months, then consider CT at 18-24 months. In a high-risk patient, CT at 6-12 months, then CT at 18-24 months. Nodule size greater than 8 mm In a low-risk patient, consider CT at 3 months, PET/CT, or tissue sampling. In a high-risk patient, consider CT at 3 months, PET/CT, or tissue sampling. - Low risk patients include individuals with minimal or absent history of smoking and other known risk factors. - High risk patients include individuals with a history or smoking or known risk factors. Radiology 2017 http://pubs.rsna.org/doi/full/10.1148/radiol.4432871432 D/ / Vasile Pena MD / Vasile Pena MD Interpreting Provider: Vasile Pena MD Consult Discharge Plan - Plan Referrals: Shashi Garcia MD [Primary Care Provider] - (3) CAD (coronary artery disease) Qualifiers: Coronary Disease-Associated Artery/Lesion type: [place] artery [place] vs. t ransplanted heart: [place] heart Associated angina: without angina Qualified Code(s): I25.10 - Atherosclerotic heart disease of [place] coronary artery without angina pectoris (4) Cancer of right lung Qualifiers: Lung location: unspecified part of lung Qualified Code(s): C34.91 - Malignant neoplasm of unspecified part of right bronchus or lung
[2018-11-12] MEDS: *HR* Heparin 5,000 UNIT/ML VIAL SQ SCH ×2 (13:49→20:14)
[2018-11-13] MEDS: Ipratropium/Albuterol Neb 3 ML IH SCH ×6 (05:37→23:37)
[2018-11-13] MEDS: *HR* Heparin 5,000 UNIT/ML VIAL SQ SCH ×3 (05:51→20:42)
[2018-11-13] MEDS: MethylPREDNISolone 40 MG/ML VIAL IVP SCH ×2 (05:52→16:26)
[2018-11-13 07:10] LABS: Hematocrit 37.1 % (35.3-44.9); Hemoglobin 12.2 g/dL (11.5-15.4); Mean Corpuscular HGB Conc 32.9 g/dL (31.6-35.5); Mean Corpuscular Hemoglobin 31.6 pg (28.0-33.3); Mean Corpuscular Volume 96.1 fL (83.0-100.0); Mean Platelet Volume 10.3 fL (9.4-12.4); Platelet Count 202 K/mcL (140-400); Red Blood Count 3.86 M/mcL (3.82-4.97); Red Cell Distribution Width 12.7 % (11.5-14.5)
[2018-11-13 07:25] LABS: Calcium 9.5 mg/dL (8.6-10.3); Potassium 3.4 mEq/L (3.5-5.1)
[2018-11-13 08:02] LABS: ABG Base Excess 7 mEq/L (-2 to 3); ABG HCO3 33 mEq/L (21-27); ABG Oxygen Saturation 95 % (95-98); ABG PCO2 51 mmHg (35-45); ABG PH 7.41 pH Units (7.32-7.45); ABG PO2 77 mmHg (85-104); ABG TCO2 34 mEq/L (20-26)
[2018-11-13 08:17] LABS: Lymphocytes # 3.2 K/mcL (0.6-4.6); Neutrophils # 4.8 K/mcL (1.6-8.9)
[2018-11-13 08:20] LABS: Reactive Lymphocytes Present (Not Present)
--- NOTE | 2018-11-13 09:01 | Internal Med Progress Note ---
Hospitalist Progress Note - Encounter Date of Encounter: 11/13/18 Time of Encounter: 08:58 - Subjective Interval History: Feeling better in shortness of breath. High flow oxygen by nasal cannula 3.5 L at this time. Overnight BiPAP. SPO2 dropped in 70s in the night possibly when she had cough for spell. Feeling very tired with generalized weakness. B ringing up lot of sputum . Reviewed the lab with low potassium. Denies fever chills chest pain abdominal pain diarrhea urinary complaint. Patient complained nausea, fatigue, cough. - Exam Vitals: Temp Pulse Resp BP Pulse Ox 97.5 F L 92 18 165/91 92 11/13/18 06:52 11/13/18 06:52 11/13/18 08:06 11/13/18 06:52 11/13/18 08:06 Exam: General appearance: No acute distress but is still get out of breath while completing a sentence-better. High flow oxygen. Eye exam: EOMI, PERRLA ENT exam: Moist oral mucosa Neck nontender, supple Respiratory exam: Bilateral wheezing scattered but no crepitation -no improvement since yesterday Cardiovascular exam: Normal rate with regular rhythm, no systolic murmur Abdominal exam: Soft, nontender, nondistended, positive bowel sounds Extremities exam: No calf tenderness, no pedal edema Present: Skin-no rash, warm, dry, intact Neurological exam: Alert, awake, oriented 3, CN II-XII intact, no focal deficits. No facial droop. Normal speech. - Assessment and Plan (1) Acute exacerbation of chronic obstructive airways disease Current Visit: Yes Status: Acute Assessment and Plan: History of COPD on 2 L oxygen at home. On admission Patient was on BiPAP initially but now weaning down to high flow oxygen. Continue IV Solu-Medrol, DuoNeb, Zithromax. Respiratory viral panel positive for rhinovirus urine Legionella and pneumococcus negative Chest x-ray with no acute finding. Decrease IV Solu-Medrol 40 mg twice-will change to oral prednisone possibly tomorrow based on clinical improvement Onboard respiratory therapist CT chest ruled out PE but 5 into 9 mm left sided lung nodule - recommended for follow-up in 3-6 months on OPD basis On board microphone operator-follow his recommendation Will keep patient in step down ICU for close monitoring as he still has labile SPO2 saturation , requiring BiPAP in the night and need close monitoring. ABG ordered (2) NSTEMI (non-ST elevated myocardial infarction) Current Visit: Yes Status: Acute Assessment and Plan: Initial troponin 0.1 and now trending down. EKG with subtle ST depression in lateral leads. Continue aspirin beta gina, nitroglycerin when necessary Echocardiogram with EF 70%, indeterminate diastolic function otherwise no acute finding. Consulted military pay clerk-does not think cardiac related event but raised troponin due to demand ischemia and no further cardiology follow-up. Is stopped heparin drip. No active chest pain at this time. (3) CAD (coronary artery disease) Current Visit: Yes Status: Chronic Assessment and Plan: Status post PCI to LAD in 2007. On aspirin beta gina. Not on a statin due to intolerance (4) Cancer of right lung Current Visit: No Status: Chronic Assessment and Plan: In remission for last several years. Patient is to follow oncologist Dr. galvan. (5) DVT prophylaxis Current Visit: Yes Status: Acute Assessment and Plan: Heparin drip stopped. Continue subcutaneous heparin (6) Hypokalemia Current Visit: Yes Status: Acute Assessment and Plan: Replacement and monitoring - Time Spent with Patient Total time spent is greater than 50% in coordination of care (as documented) at patient's floor/unit and/or counseling patient: 25 - 35 minutes Plan of Care Discussed with: patient Internal Medicine: Result - Labs CBC & Chem 7: 11/13/18 06:22 11/13/18 06:22 Labs: Short CBC 11/13/18 Range/Units 06:22 WBC 8.0 (4.3-11.1) K/mcL Hgb 12.2 (11.5-15.4) g/dL Hct 37.1 (35.3-44.9) % Plt Count 202 (140-400) K/mcL Neutrophils # 4.8 (1.6-8.9) K/mcL BMP 11/13/18 06:22 Sodium 142 Potassium 3.4 L Chloride 105 Carbon Dioxide 29 BUN 37 H Creatinine 1.11 Glucose 82 Calcium 9.5 - ABG Interpretation ABG results: ABG ABG pH 7.41 pH Units (7.32-7.45) 11/13/18 07:59 ABG pCO2 51 mmHg (35-45) H 11/13/18 07:59 ABG pO2 77 mmHg (85-104) L 11/13/18 07:59 ABG O2 Saturation 95 % (95-98) 11/13/18 07:59 PT/INR, D-dimer PT 11.0 Seconds (9.4-12.1) 11/10/18 06:57 Consult Discharge Plan - Plan Referrals: Shashi Garcia MD [Primary Care Provider] - (office was closed today (11-12-18) when I called) (3) CAD (coronary artery disease) Qualifiers: Coronary Disease-Associated Artery/Lesion type: [place] artery [place] vs. transplanted heart: [place] heart Associated angina: without angina Qualified Code(s): I25.10 - Atherosclerotic heart disease of [place] coronary artery without angina pectoris (4) Cancer of right lung Qualifiers: Lung location: unspecified part of lung Qualified Code(s): C34.91 - Malignant neoplasm of unspecified part of right bronchus or lung
[2018-11-13] MEDS: Aspirin 81 MG TAB.CHEW PO SCH (09:13)
[2018-11-13] MEDS: Azithromycin 250 MG TABLET PO SCH (09:13)
[2018-11-13] MEDS: Metoprolol XL (24 HR) Succ 50 MG TAB.ER.24H PO SCH (09:14)
[2018-11-13] MEDS: Torsemide 20 MG TABLET PO SCH (09:14)
[2018-11-13] MEDS: *HR* OxyCODONE/APAP 5/325 TABLET PO PRN ×2 (09:16→16:27)
[2018-11-13] MEDS ORDERED: Methyl Salicylate/Menthol 28 GM TUBE TP PRN (20:07)
[2018-11-14] MEDS: Ipratropium/Albuterol Neb 3 ML IH SCH ×2 (04:18→08:27)
[2018-11-14] MEDS: MethylPREDNISolone 40 MG/ML VIAL IVP SCH (05:41)
[2018-11-14] MEDS: *HR* Heparin 5,000 UNIT/ML VIAL SQ SCH (05:42)
[2018-11-14] MEDS: *HR* OxyCODONE/APAP 5/325 TABLET PO PRN (05:49)
[2018-11-14 06:17] LABS: Basophils % 0.1 %; Hematocrit 38.6 % (35.3-44.9); Hemoglobin 12.9 g/dL (11.5-15.4); Lymphocytes # 1.9 K/mcL (0.6-4.6); Lymphocytes % 26.9 %; Mean Corpuscular HGB Conc 33.4 g/dL (31.6-35.5); Mean Corpuscular Hemoglobin 31.2 pg (28.0-33.3); Mean Corpuscular Volume 93.5 fL (83.0-100.0); Mean Platelet Volume 9.9 fL (9.4-12.4); Monocytes # 0.3 K/mcL (0.0-1.3); Monocytes % 4.9 %; Neutrophils # 4.6 K/mcL (1.6-8.9); Platelet Count 211 K/mcL (140-400); Red Blood Count 4.13 M/mcL (3.82-4.97); Red Cell Distribution Width 12.4 % (11.5-14.5); Segmented Neutrophils % 67.1 %
[2018-11-14 06:48] LABS: BUN/Creatinine Ratio 27 (6-26); Blood Urea Nitrogen 29 mg/dL (8-23); Calcium 9.5 mg/dL (8.6-10.3); Carbon Dioxide 31 mEq/L (23-29); Chloride 100 mEq/L (98-107); Glucose 121 mg/dL (70-105); Osmolality,Calculated 299 (280-300); Potassium 3.8 mEq/L (3.5-5.1); Sodium 141 mEq/L (136-145); eGFR For Non-African Americans 50 (> 60)
[2018-11-14 06:51] VITALS: BP 174/90
[2018-11-14 06:57] LABS: Platelet Estimate Normal (Normal); Reactive Lymphocytes Present (Not Present)
--- NOTE | 2018-11-14 07:55 | Discharge Summary ---
- NOTES TO OUTPATIENT PROVIDER Notes to Outpatient Provider: Had a CT that showed a new 5 x 9 mm subpleural nodular density posterior medial left lower lobe. Will need a CT scan in 3-6 months per recommendations Orders not resulted at time of discharge: Pending orders 11/10/18 07:35 ECG 12 lead ECG [ECG] Stat 11/10/18 11:09 Culture,Sputum with Gram Stain [RM] Routine 11/11/18 07:00 ECG 12 lead ECG [ECG] Routine Date of Encounter: 11/14/18 Time of Encounter: 07:53 - Discharge Diagnosis (1) Acute exacerbation of chronic obstructive airways disease Priority: Primary Status: Acute (2) NSTEMI (non-ST elevated myocardial infarction) Priority: Primary Status: Acute (3) Cancer of right lung Priority: Secondary Status: Chronic Qualifiers: Lung location: unspecified part of lung Qualified Code(s): C34.91 - Malignant neoplasm of unspecified part of right bronchus or lung (4) CAD (coronary artery disease) Priority: Secondary Status: Chronic Qualifiers: Coronary Disease-Associated Artery/Lesion type: [place] artery [place] vs. transplanted heart: [place] heart Associated angina: without angina Qualified Code(s): I25.10 - Atherosclerotic heart disease of [place] coronary artery without angina pectoris (5) Hypokalemia Priority: Primary Status: Acute (6) Pulmonary nodule Priority: Primary Status: Acute Hospital course: Ms. Nagi Walters is a 78 year old female with oxygen dependent COPD, CAD s/p prior PCI, and lung cancer in remission presented via EMS with worsening dyspnea for the last 2 days, requiring increase in her home oxygen, and has been associated with cough with small amount of yellow sputum for 1 day. Initially admitted to the ICU for COPD exacerbation. She tested positive for rhinovirus. She was put on IV steroids and Zithromax for its anti-inflammatory effects. A consult to pulmonology was obtained. There was also a consult to cardiology to elevated troponins. Cardiology signed off as her troponins were only elevated minimally and is likely due to demand ischemia from hypoxia. She was weaned down on the IV steroids and wean down back to her baseline oxygen needs of about 2 L. She had a CTA of the chest which ruled out PE but showed a pulmonary nodule that needed to be followed up on about 3-6 months with another scan. The patient does have a history of lung cancer in remission. She follows with Dr. Juarez and she will follow-up with her. The patient was discharged on a prednisone taper and a Zithromax to finish a total of 5 days. - Time Spent with Patient Total time spent providing and/or coordinating discharge services: Greater than 30 minutes - Discharge Medications Prescriptions: RX: Azithromycin [Zithromax] 500 mg PO DAILY #2 tablet predniSONE [PredniSONE] See Taper PO TAPER #30 tablet Home Medications: RX: Albuterol Sulfate [Albuterol Inhaler] 2 puff IH Q4HR PRN 05/17/16 [History] RX: Aspirin 81 mg PO DAILY 05/17/16 [History] RX: Ergocalciferol (VITAMIN D2) [Vitamin D2] 2,000 unit PO DAILY 05/17/16 [History] RX: Fluticasone/Salmeterol [Advair 250-50 Diskus] 1 puff IH Q12H 05/17/16 [History] RX: Oxycodone HCl/Acetaminophen [Percocet 5-325 mg Tablet] 1 tab PO Q8H PRN 05/17/16 [History] RX: raNITIdine HCl [Zantac] 150 mg PO DAILY PRN 05/17/16 [History] RX: Acetaminophen [Tylenol] 325 - 650 mg PO Q6HR PRN 11/22/17 [History] RX: Metoprolol Succinate [Toprol Xl] 50 mg PO DAILY 11/10/18 [History] RX: Torsemide [Demadex] 20 mg PO DAILY 11/10/18 [History] RX: Azithromycin [Zithromax] 500 mg PO DAILY #2 tablet 11/14/18 [Rx] predniSONE [PredniSONE] See Taper PO TAPER #30 tablet 11/14/18 [Rx] Allergies/Adverse Reactions: Allergy/AdvReac Type Severity Reaction Status Date / Time fish oil Allergy Rash Verified 06/05/18 10:42 influenza virus vaccine ts Allergy Anaphylaxis Verified 06/05/18 10:42 [id number] (36 mos,up) [From Fluarix] mannitol [From Reclast] Allergy Hives Verified 06/05/18 10:42 Neomycin Allergy Rash Verified 06/05/18 10:42 NSAIDS (Non-Steroidal Allergy Rash Verified 06/05/18 10:42 Anti-Inflamma Penicillins [PCN] Allergy Rash Verified 06/05/18 10:42 sulfamethoxazole Allergy Rash Verified 06/05/18 10:42 [From Bactrim] trimethoprim [From Bactrim] Allergy Rash Verified 06/05/18 10:42 water for injection,sterile Allergy Hives Verified 06/05/18 10:42 [From Reclast] zoledronic acid Allergy Hives Verified 06/05/18 10:42 [From Reclast] simvastatin [From Zocor] AdvReac Cramping Verified 06/05/18 10:42 of the Muscles Date of admission: 11/10/18 08:04 Primary care physician: Shashi Garcia MD Consults: 11/10/18 11:05 Consult to Cardiac Rehabilitation-Phase1 [CONS] Routine Comment: Reason for Consult: AMI Call Completed: Yes Consult to Nurse Navigator [CONS] Routine Comment: Consult to Nurse Navigator [CONS] Routine Comment: 11/10/18 11:09 Consult to Cardiology [CONS] Routine Comment: Consulting Provider: Cardiology Miraim Reason for Consult: non-STEMI in the setting of AECOPD, Hx CAD and prior PCI, currently chest pain free Call Completed: No 11/11/18 10:59 Consult to Pulmonology [CONS] Routine Consulting Provider: [facility] [place] Reason for Consult: COPD exacerbation with respiratory acidosis on BiPAP Call Completed: Yes 11/11/18 13:43 Consult to Respiratory Therapy [CONS] Routine Reason for Consult: Chest tolerating and weaning down high flow oxygen Call Completed: No - Constitutional Vitals: Temp Pulse Resp BP Pulse Ox 97.9 F 73 18 174/90 93 11/14/18 06:49 11/14/18 06:49 11/14/18 06:49 11/14/18 06:49 11/14/18 06:49 Exam: GEN: NAD CVS: RRR. S1, S2, No m/r/g RESP: Diminished but no wheezes rhonchi or rales ABD: Soft, NT, ND, +BS EXT: No edema. 2+ DP. No rashes NEURO: Nonfocal - Patient Status Disposition: Home, Self-Care Condition: Fair Overall status at discharge: patient is progressing back to baseline - Discharge Instructions Instructions: Chronic Obstructive Pulmonary Disease (DC) Follow Up With: Shashi Garcia MD [Primary Care Provider] - 11/26/18 2:15 pm () - Diet and Activity Activity: increase activity as tolerated Diet: regular diet
[2018-11-14] MEDS: Azithromycin 250 MG TABLET PO SCH (08:17)
[2018-11-14] MEDS: Aspirin 81 MG TAB.CHEW PO SCH (08:17)
[2018-11-14] MEDS: Metoprolol XL (24 HR) Succ 50 MG TAB.ER.24H PO SCH (08:17)
[2018-11-14] MEDS: Torsemide 20 MG TABLET PO SCH (08:18)
--- NOTE | 2018-11-14 09:12 | Electrocardiograph Report ---
[place] [address] Test Date: 2018-11-10 Pat Name: Olesya Walters Department: [id number] Room: 2N06 Gender: F [employer]: : 1940 Requested By: Jamila Leach Order Number: [id number] Reading MD: Yasmany Logan Measurements Intervals [place] Rate: 115 P: 63 TN: 44 QRS: 87 QRSD: 84 T: 61 QT: 324 QTc: 449 Interpretive Statements Sinus tachycardia Anterior infarct, old Electronically Signed On 11-14-2018 9:10:50 EST by Yasmany Logan
--- NOTE | 2018-11-14 09:23 | Electrocardiograph Report ---
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
== END 2018-11-14 10:49 | disposition home or self-care (01) | DRG 280 ==
LOC: EMEROOARM 04:36 → 2NNU 08:04
PROVIDERS: ADMIT Internal Medicine; ATTEND Internal Medicine

== ENCOUNTER 2019-04-23 16:20 | Inpatient (IN) ==
--- NOTE | 2019-04-23 16:40 | Emergency Department Note ---
Disposition Clinical Impression: Pleural effusion, Edema, Hypertension, History of lung cancer, History of COPD, Dyspnea, CAD (coronary artery disease), Knee contusion, History of recent fall Disposition: Admitted As Inpatient Referrals: Shashi Garcia MD [Primary Care Provider] - Forms: ED Satisfaction Letter Time of Disposition: 20:17 General Adult HPI - General Chief complaint: ED Shortness of Breath/Dyspnea Stated complaint: HTN, Fluid Build Up Time Seen by Provider: 04/23/19 16:25 Source: patient, family Limitations: no limitations - History of Present Illness HPI Narrative: 78-year-old female reports emergency department complaining of leg swelling and a 10 pound weight gain over the last several days. She reports she takes diuretic medication. She reports that she gets short of breath when she lays flat. The patient is also concerned about elevated blood pressure. There is no history of coughing up blood or syncope. No chest pain. No headache or confusion. No unilateral arm or leg weakness or numbness no slurred speech or facial droop. No fevers or urinary problems no acute back pain. The patient reports that she fell recently, she states she stubbed her toe in a parking lot and slipped and fell down, she did not have a syncopal event, she did not have loss of consciousness or serious injury per her report, and was evaluated at urgent care as well as secondarily by her primary care physician. She states she has been keeping a blood pressure log and her blood pressure been significantly elevated. She describes dyspnea on exertion. Pain Scale: 0 - Related Data Home Medications Medication Instructions Recorded Confirmed Albuterol Sulfate [Albuterol 2 puff IH Q4HR PRN 05/17/16 12/12/18 Inhaler] Aspirin 81 mg PO DAILY 05/17/16 12/12/18 Ergocalciferol (VITAMIN D2) 2,000 unit PO DAILY 05/17/16 12/12/18 [Vitamin D2] Fluticasone/Salmeterol [Advair 1 puff IH Q12H 05/17/16 12/12/18 250-50 Diskus] Oxycodone HCl/Acetaminophen 1 tab PO Q8H PRN 05/17/16 12/12/18 [Percocet 5-325 mg Tablet] raNITIdine HCl [Zantac] 150 mg PO DAILY PRN 05/17/16 12/12/18 Acetaminophen [Tylenol] 325 - 650 mg PO Q6HR PRN 11/22/17 12/12/18 Metoprolol Succinate [Toprol Xl] 50 mg PO DAILY 11/10/18 12/12/18 Allergies Allergy/AdvReac Type Severity Reaction Status Date / Time fish oil Allergy Rash Verified 04/23/19 19:39 influenza virus vaccine ts Allergy Anaphylaxis Verified 04/23/19 19:39 [id number] (36 mos,up) [From Fluarix] mannitol [From Reclast] Allergy Hives Verified 04/23/19 19:39 Neomycin Allergy Rash Verified 04/23/19 19:39 NSAIDS (Non-Steroidal Allergy Rash Verified 04/23/19 19:39 Anti-Inflamma Penicillins [PCN] Allergy Rash Verified 04/23/19 19:39 sulfamethoxazole Allergy Rash Verified 04/23/19 19:39 [From Bactrim] trimethoprim [From Bactrim] Allergy Rash Verified 04/23/19 19:39 water for injection,sterile Allergy Hives Verified 04/23/19 19:39 [From Reclast] zoledronic acid Allergy Hives Verified 04/23/19 19:39 [From Reclast] simvastatin [From Zocor] AdvReac Cramping Verified 04/23/19 19:39 of the Muscles All systems ED: reviewed and negative except as stated. Past Medical History - Past Medical History Medical history: Reports: arthritis, cancer, coronary artery disease, GERD, hyperlipidemia, hypertension Surgical history: Reports: cholecystectomy, hysterectomy, orthopedic, other Psychiatric history: Reports: no psych history - Social History Smoking Status: Current some day smoker Smokeless Tobacco Status: No Alcohol use: Reports: none, heavy Drug use: Reports: none Physical Exam - General Limitations: no limitations General appearance: alert, in no apparent distress - Head Head exam: atraumatic, normocephalic, normal inspection - Eye Eye exam: Present: normal appearance, PERRL, EOMI - ENT ENT exam: normal exam, normal oropharynx, mucous membranes moist - Neck Neck exam: Present: normal inspection, full ROM, trachea midline - Chest Chest inspection: Present: symmetric chest wall rise. Absent: tenderness - Respiratory Respiratory exam: Present: normal lung sounds bilaterally. Absent: respiratory distress, prolonged expiratory phase - Cardiovascular Cardiovascular exam: Present: regular rate, normal rhythm, normal heart sounds - Abdominal Exam Abdominal exam: Present: soft, Non-Tender, normal bowel sounds. Absent: tenderness, distention, guarding, rebound, rigidity - Extremities Exam Extremities exam: Present: normal capillary refill, pedal edema, other (Bilateral lower edema symmetric). Absent: normal inspection (Minor contusions bilateral knees.), joint swelling, calf tenderness - Expanded Lower Extremity Exam Hip/Pelvis exam: Present: full ROM. Absent: tenderness Upper leg exam: Present: full ROM. Absent: tenderness Knee exam: Present: full ROM. Absent: tenderness Lower leg exam: Present: full ROM. Absent: tenderness Ankle exam: Present: full ROM. Absent: tenderness Neurovascular/Tendon exam: Present: normal capillary refill. Absent: motor deficit, sensory deficit, tendon deficit, extremity cold to touch, pallor - Back Exam Back exam: Present: normal inspection, full ROM. Absent: tenderness, CVA tenderness (R), CVA tenderness (L), vertebral tenderness - Neurological Exam Neurological exam: Present: alert, oriented X3, CN II-XII intact. Absent: motor sensory deficit - Psychiatric Psychiatric exam: Present: normal affect, normal mood - Skin Skin exam: Present: warm, dry, intact, normal color Course Vital Signs Temperature 98.9 F 04/23/19 16:21 Pulse Rate 108 04/23/19 16:21 Respiratory Rate 18 04/23/19 16:21 Blood Pressure 206/92 04/23/19 16:21 O2 Sat by Pulse Oximetry 91 04/23/19 16:21 Temperature 98.9 F 04/23/19 16:21 Pulse Rate 93 04/23/19 20:11 Respiratory Rate 20 04/23/19 20:11 Blood Pressure 157/82 04/23/19 20:11 O2 Sat by Pulse Oximetry 95 04/23/19 20:11 Oxygen Delivery Oxygen Delivery Room Air Medical Decision Making - [facility] Narrative Medical decision making narrative: The patient describes dyspnea particularly when laying flat with increasing lower extremity edema. She has a history of CAD with prior PCI and stents but does not describe chest pain. She does have a history of lung malignancy. Chest x-ray shows changes suggestive of pulmonary edema as well as a pleural effusion. She did have a prior echocardiogram which showed an ejection fraction of 70%. The patient does not describe coughing up blood or syncope. She states she has had significantly elevated blood pressures. The patient denies a significant headache. There is no history of lethargy or difficulty moving the arms or legs independently. No history of unilateral arm or leg weakness or numbness. No fevers or urinary symptoms although she states she has been urinating less than normal. The patient seems to be symptomatic from a pulmonary edema standpoint. Given the patient's age, history of CAD, concerns for dyspnea, abnormal chest x-ray, history of lung cancer, and elevated blood pressures, and what is described as dyspnea on exertion, I thought it would be appropriate to admit the patient for further evaluation. The patient is not tac hycardic or hypoxemic and does not describe chest pain however a recurrence of lung malignancy or PE is also a consideration. A d-dimer has been ordered. The patient prefers to stay in the hospital versus going home. I consulted with the hospitalist contracting manager who has accepted the patient to their care. - Lab Data Lab results reviewed: Yes I reviewed the patient's lab results. Result diagrams: 04/23/19 17:02 04/23/19 17:02 Lab Results 04/23/19 04/23/19 04/23/19 Range/Units 17:02 17:02 17:02 WBC 6.3 (4.3-11.1) K/mcL RBC 4.14 (3.82-4.97) M/mcL Hgb 13.0 (11.5-15.4) g/dL Hct 39.2 (35.3-44.9) % MCV 94.7 (83.0-100.0) fL MCH 31.4 (28.0-33.3) pg MCHC 33.2 (31.6-35.5) g/dL RDW 12.3 (11.5-14.5) % Plt Count 243 (140-400) K/mcL MPV 9.7 (9.4-12.4) fL Immature Gran % 0.3 (0-4) % Seg Neutrophils % 58.8 % Lymphocytes % 33.0 % Monocytes % 5.7 % Eosinophils % 1.7 % Basophils % 0.5 % Neutrophils # 3.7 (1.6-8.9) K/mcL Lymphocytes # 2.1 (0.6-4.6) K/mcL Monocytes # 0.4 (0.0-1.3) K/mcL Eosinophils # 0.1 (0.0-0.6) K/mcL Basophils # 0.0 (0.0-0.2) K/mcL PT 10.2 (9.4-12.1) Seconds INR 0.9 APTT 29.1 (26.0-36.0) Seconds Sodium 137 (136-145) mEq/L Potassium 4.1 (3.5-5.1) mEq/L Chloride 106 (98-107) mEq/L Carbon Dioxide 24 (23-29) mEq/L BUN 16 (8-23) mg/dL Creatinine 1.06 (0.60-1.20) mg/dL Est GFR ( Amer) > 60 (> 60) Est GFR (Non-Af Amer) 50 L (> 60) BUN/Creatinine Ratio 15 (6-26) Glucose 107 H (70-105) mg/dL Calculated Osmolality 286 (280-300) Lactic Acid (0.5-2.2) mmol/L Calcium 9.8 (8.6-10.3) mg/dL Total Bilirubin 0.4 (0.3-1.0) mg/dL Direct Bilirubin 0.0 (0.0-0.2) mg/dL Indirect Bilirubin 0.4 (0.0-1.2) mg/dL AST 18 (13-39) Units/L ALT 11 (7-52) Units/L Alkaline Phosphatase 73 (34-104) Units/L Troponin I < 0.03 (< 0.04) ng/mL C-Reactive Protein < 5 (Less than 10) mg/L B-Natriuretic Peptide (Less than 100) pg/mL Serum Total Protein 6.2 L (6.4-8.9) g/dL Albumin 4.0 (3.5-5.7) g/dL Globulin 2.2 L (2.4-3.5) g/dL Albumin/Globulin Ratio 1.8 (1.1-2.2) Urine Color (Yellow) Urine Clarity (Clear) Urine pH (5.0-8.0) pH Units Ur Specific [place] (1.010-1.025) Urine Protein (Neg-Trace) mg/dL Urine Glucose (UA) (Normal) mg/dL Urine Ketones (Negative) mg/dL Urine Blood (Negative) Urine Nitrite (Negative) Urine Bilirubin (Negative) Urine Urobilinogen (Normal) mg/dL Ur Leukocyte Esterase (Negative) 04/23/19 04/23/19 04/23/19 Range/Units 17:02 17:02 17:33 WBC (4.3-11.1) K/mcL RBC (3.82-4.97) M/mcL Hgb (11.5-15.4) g/dL Hct (35.3-44.9) % MCV (83.0-100.0) fL MCH (28.0-33.3) pg MCHC (31.6-35.5) g/dL RDW (11.5-14.5) % Plt Count (140-400) K/mcL MPV (9.4-12.4) fL Immature Gran % (0-4) % Seg Neutrophils % % Lymphocytes % % Monocytes % % Eosinophils % % Basophils % % Neutrophils # (1.6-8.9) K/mcL Lymphocytes # (0.6-4.6) K/mcL Monocytes # (0.0-1.3) K/mcL Eosinophils # (0.0-0.6) K/mcL Basophils # (0.0-0.2) K/mcL PT (9.4-12.1) Seconds INR APTT (26.0-36.0) Seconds Sodium (136-145) mEq/L Potassium (3.5-5.1) mEq/L Chloride (98-107) mEq/L Carbon Dioxide (23-29) mEq/L BUN (8-23) mg/dL Creatinine (0.60-1.20) mg/dL Est GFR ( Amer) (> 60) Est GFR (Non-Af Amer) (> 60) BUN/Creatinine Ratio (6-26) Glucose (70-105) mg/dL Calculated Osmolality (280-300) Lactic Acid 0.7 (0.5-2.2) mmol/L Calcium (8.6-10.3) mg/dL Total Bilirubin (0.3-1.0) mg/dL Direct Bilirubin (0.0-0.2) mg/dL Indirect Bilirubin (0.0-1.2) mg/dL AST (13-39) Units/L ALT (7-52) Units/L Alkaline Phosphatase (34-104) Units/L Troponin I (< 0.04) ng/mL C-Reactive Protein (Less than 10) mg/L B-Natriuretic Peptide 113 H (Less than 100) pg/mL Serum Total Protein (6.4-8.9) g/dL Albumin (3.5-5.7) g/dL Globulin (2.4-3.5) g/dL Albumin/Globulin Ratio (1.1-2.2) Urine Color Yellow (Yellow) Urine Clarity Clear (Clear) Urine pH 6.0 (5.0-8.0) pH Units Ur Specific [place] 1.007 L (1.010-1.025) Urine Protein Negative (Neg-Trace) mg/dL Urine Glucose (UA) Normal (Normal) mg/dL Urine Ketones Negative (Negative) mg/dL Urine Blood Negative (Negative) Urine Nitrite Negative (Negative) Urine Bilirubin Negative (Negative) Urine Urobilinogen Normal (Normal) mg/dL Ur Leukocyte Esterase Negative (Negative) 04/23/19 Range/Units 19:27 WBC (4.3-11.1) K/mcL RBC (3.82-4.97) M/mcL Hgb (11.5-15.4) g/dL Hct (35.3-44.9) % MCV (83.0-100.0) fL MCH (28.0-33.3) pg MCHC (31.6-35.5) g/dL RDW (11.5-14.5) % Plt Count (140-400) K/mcL MPV (9.4-12.4) fL Immature Gran % (0-4) % Seg Neutrophils % % Lymphocytes % % Monocytes % % Eosinophils % % Basophils % % Neutrophils # (1.6-8.9) K/mcL Lymphocytes # (0.6-4.6) K/mcL Monocytes # (0.0-1.3) K/mcL Eosinophils # (0.0-0.6) K/mcL Basophils # (0.0-0.2) K/mcL PT (9.4-12.1) Seconds INR APTT (26.0-36.0) Seconds Sodium (136-145) mEq/L Potassium (3.5-5.1) mEq/L Chloride (98-107) mEq/L Carbon Dioxide (23-29) mEq/L BUN (8-23) mg/dL Creatinine (0.60-1.20) mg/dL Est GFR ( Amer) (> 60) Est GFR (Non-Af Amer) (> 60) BUN/Creatinine Ratio (6-26) Glucose (70-105) mg/dL Calculated Osmolality (280-300) Lactic Acid 0.6 (0.5-2.2) mmol/L Calcium (8.6-10.3) mg/dL Total Bilirubin (0.3-1.0) mg/dL Direct Bilirubin (0.0-0.2) mg/dL Indirect Bilirubin (0.0-1.2) mg/dL AST (13-39) Units/L ALT (7-52) Units/L Alkaline Phosphatase (34-104) Units/L Troponin I (< 0.04) ng/mL C-Reactive Protein (Less than 10) mg/L B-Natriuretic Peptide (Less than 100) pg/mL Serum Total Protein (6.4-8.9) g/dL Albumin (3.5-5.7) g/dL Globulin (2.4-3.5) g/dL Albumin/Globulin Ratio (1.1-2.2) Urine Color (Yellow) Urine Clarity (Clear) Urine pH (5.0-8.0) pH Units Ur Specific [place] (1.010-1.025) Urine Protein (Neg-Trace) mg/dL Urine Glucose (UA) (Normal) mg/dL Urine Ketones (Negative) mg/dL Urine Blood (Negative) Urine Nitrite (Negative) Urine Bilirubin (Negative) Urine Urobilinogen (Normal) mg/dL Ur Leukocyte Esterase (Negative) - Radiology Data Radiology results reviewed: Yes I reviewed the patient's radiology results.
[2019-04-23 17:26] LABS: Basophils % 0.5 %; Eosinophils # 0.1 K/mcL (0.0-0.6); Eosinophils % 1.7 %; Hematocrit 39.2 % (35.3-44.9); Immature Granulocytes % 0.3 % (0-4); Lymphocytes # 2.1 K/mcL (0.6-4.6); Mean Corpuscular HGB Conc 33.2 g/dL (31.6-35.5); Mean Corpuscular Hemoglobin 31.4 pg (28.0-33.3); Mean Corpuscular Volume 94.7 fL (83.0-100.0); Mean Platelet Volume 9.7 fL (9.4-12.4); Monocytes # 0.4 K/mcL (0.0-1.3); Monocytes % 5.7 %; Neutrophils # 3.7 K/mcL (1.6-8.9); Platelet Count 243 K/mcL (140-400); Red Blood Count 4.14 M/mcL (3.82-4.97); Red Cell Distribution Width 12.3 % (11.5-14.5); Segmented Neutrophils % 58.8 %; White Blood Count 6.3 K/mcL (4.3-11.1)
[2019-04-23 17:36] LABS: Alanine Aminotransferase 11 Units/L (7-52); Albumin/Globulin Ratio 1.8 (1.1-2.2); Alkaline Phosphatase 73 Units/L (34-104); Aspartate Amino Transferase 18 Units/L (13-39); BUN/Creatinine Ratio 15 (6-26); Bilirubin,Indirect 0.4 mg/dL (0.0-1.2); Bilirubin,Total 0.4 mg/dL (0.3-1.0); Blood Urea Nitrogen 16 mg/dL (8-23); C-Reactive Protein < 5 mg/L (Less than 10); Calcium 9.8 mg/dL (8.6-10.3); Carbon Dioxide 24 mEq/L (23-29); Chloride 106 mEq/L (98-107); Globulin 2.2 g/dL (2.4-3.5); Glucose 107 mg/dL (70-105); Osmolality,Calculated 286 (280-300); Potassium 4.1 mEq/L (3.5-5.1); Sodium 137 mEq/L (136-145); Total Protein 6.2 g/dL (6.4-8.9); Troponin I < 0.03 ng/mL (< 0.04); eGFR For African Americans > 60 (> 60); eGFR For Non-African Americans 50 (> 60)
[2019-04-23 17:39] LABS: INR 0.9; Prothrombin Time 10.2 Seconds (9.4-12.1)
[2019-04-23 17:41] LABS: Activated Partial Thrombo Time 29.1 Seconds (26.0-36.0)
[2019-04-23 17:46] LABS: Bilirubin,Urine Negative (Negative); Blood,Urine Negative (Negative); Clarity,Urine Clear (Clear); Color,Urine Yellow (Yellow); Glucose,Urine (UA) Normal (Normal); Ketones,Urine Negative (Negative); Leukocyte Esterase,Urine Negative (Negative); Nitrite,Urine Negative (Negative); Protein,Urine Negative (Neg-Trace); Specific Gravity,Urine 1.007 (1.010-1.025); Urobilinogen,Urine Normal (Normal)
[2019-04-23] MEDS ORDERED: Furosemide 40 MG/4 ML VIAL IVP ONE (19:50)
[2019-04-23] MEDS ORDERED: Ipratropium/Albuterol Neb 3 ML IH ONE (20:20)
[2019-04-23] MEDS ORDERED: methylPREDNISolone 125 MG/2 ML VIAL IVP ONE (20:20)
[2019-04-23] MEDS ORDERED: Naloxone 0.4 MG/ML INJ IVP PRN (21:04)
--- NOTE | 2019-04-23 21:16 | Internal Med History&Physical ---
Date of Encounter: 04/23/19 Time of Encounter: 21:12 Internal Medicine - H&P: HPI Chief complaint: Edema, shortness of breath Admitted From: Emergency Dept Plans for Post Hospital Care: Home History of present illness: Ms. Nagi Walters is a 78 year old female with history of hypertension, asthma presents with elevated blood pressure. Patient states that over the last several months her blood pressure has been elevated. He states he has seen her primary care as well as a corporate travel expert for this and they have been changing her medications around and the medications helped for short period of time however her blood pressure then begins to rise. She is also had lower extremity swelling that has not improved and over the last several days she has had worsening shortness of breath. She states her shortness of breath is worse with activity and when lying flat. She denies any chest pain, abdominal pain, nausea or vomiting. Discussed with patient who wishes to be full code. Past Med Surg Social Fam HX - Past Medical History Medical history: arthritis, cancer, coronary artery disease, GERD, hyperlipidemia, hypertension Additional medical history: lung cancer Psychiatric history: no psych history - Past Surgical History Surgical History: cholecystectomy, hysterectomy, orthopedic, other Additional surgical history: right upper lung lobectomy - Social History Smoking Status: Current some day smoker Smokeless Tobacco Status: No Alcohol use: none, heavy Drug use: none - Additional Family History Additional family history: Patient reports history of congestive heart failure in her mother. Internal Medicine - H&P: Meds Albuterol Sulfate [Albuterol Inhaler] 2 puff IH Q4HR PRN 05/17/16 [History] Aspirin 81 mg PO DAILY 05/17/16 [History] Ergocalciferol (VITAMIN D2) [Vitamin D2] 2,000 unit PO DAILY 05/17/16 [History] Fluticasone/Salmeterol [Advair 250-50 Diskus] 1 puff IH Q12H 05/17/16 [History] Oxycodone HCl/Acetaminophen [Percocet 5-325 mg Tablet] 1 tab PO Q8H PRN 05/17/16 [History] raNITIdine HCl [Zantac] 150 mg PO DAILY PRN 05/17/16 [History] Acetaminophen [Tylenol] 325 - 650 mg PO Q6HR PRN 11/22/17 [History] Metoprolol Succinate [Toprol Xl] 50 mg PO DAILY 11/10/18 [History] Allergy/AdvReac Type Severity Reaction Status Date / Time fish oil Allergy Rash Verified 04/23/19 19:39 influenza virus vaccine ts Allergy Anaphylaxis Verified 04/23/19 19:39 [id number] (36 mos,up) [From Fluarix] mannitol [From Reclast] Allergy Hives Verified 04/23/19 19:39 Neomycin Allergy Rash Verified 04/23/19 19:39 NSAIDS (Non-Steroidal Allergy Rash Verified 04/23/19 19:39 Anti-Inflamma Penicillins [PCN] Allergy Rash Verified 04/23/19 19:39 sulfamethoxazole Allergy Rash Verified 04/23/19 19:39 [From Bactrim] trimethoprim [From Bactrim] Allergy Rash Verified 04/23/19 19:39 water for injection,sterile Allergy Hives Verified 04/23/19 19:39 [From Reclast] zoledronic acid Allergy Hives Verified 04/23/19 19:39 [From Reclast] simvastatin [From Zocor] AdvReac Cramping Verified 04/23/19 19:39 of the Muscles All Systems PM: A 10-system review of systems was performed and is negative for pertinent findings except as documented above in the HPI. Review of systems: 10 point review systems is obtained and negative other than stated below. - Constitutional Constitutional: no chills, no fever(s) - Cardiovascular Cardiovascular ROS IM: dyspnea, edema, orthopnea, no chest pain, no syncope - Respiratory Respiratory: dyspnea, no cough, no chest congestion, no excessive phlegm production, no change in phlegm color - Gastrointestinal Gastrointestinal: no abdominal pain, no nausea, no vomiting - Constitutional Vitals: Temp Pulse Resp BP Pulse Ox 98.9 F 93 20 157/82 95 04/23/19 16:21 04/23/19 20:11 04/23/19 20:11 04/23/19 20:11 04/23/19 20:11 General appearance: Present: A&O X 3, pleasant, no acute distress Exam: . - Head Head exam: Present: atraumatic, normal inspection, normocephalic - Eye Eye exam: Present: EOMI, PERRL - ENT ENT exam: Present: mucous membranes moist, normal oropharynx - Respiratory Respiratory exam: Present: rales (Bibasilar rales), wheezes (Diffuse, end expiratory). Absent: CTAB, respiratory distress, rhonchi, tachypnea - Cardiovascular Cardiovascular exam: Present: RRR. Absent: gallop, rubs, systolic murmur, tachycardia - GI/Abdominal GI/Abdominal exam: Present: normal bowel sounds, soft. Absent: distended, tenderness - Extremities Exam Extremities exam: Present: full ROM, pedal edema (2+ LE edema), warm. Absent: tenderness - Neurological Exam Neurological exam: Present: alert, CN II-XII intact, oriented X3, no focal deficits, strengths equal and symetr throughout. Absent: speech deficit - Psychiatric Psychiatric exam: Present: normal affect, normal mood - Skin Skin exam: Present: dry, intact, warm Internal Med - H&P Results - Labs CBC & Chem 7: 04/23/19 17:02 04/23/19 17:02 Labs: Short CBC 04/23/19 Range/Units 17:02 WBC 6.3 (4.3-11.1) K/mcL Hgb 13.0 (11.5-15.4) g/dL Hct 39.2 (35.3-44.9) % Plt Count 243 (140-400) K/mcL Neutrophils # 3.7 (1.6-8.9) K/mcL BMP 04/23/19 17:02 Sodium 137 Potassium 4.1 Chloride 106 Carbon Dioxide 24 BUN 16 Creatinine 1.06 Glucose 107 H Calcium 9.8 Cardiac Enzymes 04/23/19 Range/Units 17:02 Troponin I < 0.03 (< 0.04) ng/mL Liver Function 04/23/19 Range/Units 17:02 Total Bilirubin 0.4 (0.3-1.0) mg/dL Direct Bilirubin 0.0 (0.0-0.2) mg/dL AST 18 (13-39) Units/L ALT 11 (7-52) Units/L Alkaline Phosphatase 73 (34-104) Units/L Albumin 4.0 (3.5-5.7) g/dL Urine 04/23/19 Range/Units 17:33 Urine Color Yellow (Yellow) Urine Clarity Clear (Clear) Urine pH 6.0 (5.0-8.0) pH Units Ur Specific [place] 1.007 L (1.010-1.025) Urine Protein Negative (Neg-Trace) mg/dL Urine Glucose (UA) Normal (Normal) mg/dL - Impressions ITS Impressions Chest X-Ray 04/23/19 16:38 IMPRESSION: Pulmonary vascular congestion and small right pleural effusion suggest pulmonary edema. D/ / 04/23/2019 17:24:06 Roz Bernabe MD / shuay Interpreting Provider: Roz Bernabe MD - Assessment and Plan (1) Acute on chronic diastolic heart failure Current Visit: Yes Status: Acute Assessment and plan: Patient presents with lower extremity edema, shortness of breath, orthopnea. Chest x-ray reviewed and reveals an incision small pleural effusions and pulmonary edema. Previous echo approximately 6 months ago showed mild diastolic dysfunction with normal EF. We will recheck a limited echo to assess EF. EKG reviewed and is unremarkable. Troponin negative. Treat with Lasix 40 mg IV yeimi ly,, cardiac diet, fluid restriction. Continue beta gina. (2) Chronic kidney disease, stage III (moderate) Current Visit: Yes Status: Acute Assessment and plan: Creatinine 1.06 on presentation, GFR is 50. Appears to be baseline for patient. No evidence of a ABDELRAHMAN. Closely monitor renal function with ongoing diuresis. (3) Asthma Current Visit: Yes Status: Acute Assessment and plan: Patient reports history of asthma and on Advair at home. Patient has mild wheezes on exam however I feel like this is more related to pulmonary edema and fluid rather than bronchial inflammation. She reports even doses ointment on the ER but will hold off as this can worsen fluid retention. We will give scheduled bronchodilators. If respiratory status does not improve then we will consider steroids. Qualifiers: Asthma severity: mild Asthma persistence: unspecified Asthma complication type: unspecified Qualified Code(s): J45.909 - Unspecified asthma, uncomplicated (4) Hypertension Current Visit: Yes Status: Acute Assessment and plan: Blood pressure significantly elevated on presentation at 206/92 but has come down to 157/82 spontaneously. Patient states is about what her blood pressures been running over the last several months. Likely worsened by fluid overload. Continue beta gina and start Lasix as above. We will monitor blood pressure and consider up titration of blood pressure medication based on response with Lasix. Qualifiers: Hypertension type: essential hypertension Qualified Code(s): I10 - Essential (primary) hypertension (5) DVT prophylaxis Current Visit: No Status: Acute Assessment and plan: Heparin 5000 units subcutaneous twice a day - Time Spent With Patient Total time spent is greater than 50% in coordination of care (as documented) at patient's floor/unit and/or counseling patient:
[2019-04-23] MEDS: *HR* OxyCODONE Immed Rel 5 MG TABLET PO PRN (22:38)
[2019-04-24] MEDS: Ipratropium/Albuterol Neb 3 ML IH SCH ×7 (00:10→23:19)
[2019-04-24] MEDS: *HR* Heparin 5,000 UNIT/ML VIAL SQ SCH ×2 (05:10→17:18)
[2019-04-24 05:53] LABS: Basophils % 0.2 %; Hematocrit 41.2 % (35.3-44.9); Hemoglobin 13.7 g/dL (11.5-15.4); Immature Granulocytes % 0.3 % (0-4); Lymphocytes # 1.1 K/mcL (0.6-4.6); Lymphocytes % 18.5 %; Mean Corpuscular HGB Conc 33.3 g/dL (31.6-35.5); Mean Corpuscular Hemoglobin 30.8 pg (28.0-33.3); Mean Corpuscular Volume 92.6 fL (83.0-100.0); Mean Platelet Volume 9.8 fL (9.4-12.4); Monocytes % 0.3 %; Neutrophils # 4.9 K/mcL (1.6-8.9); Platelet Count 255 K/mcL (140-400); Red Blood Count 4.45 M/mcL (3.82-4.97); Segmented Neutrophils % 80.7 %
[2019-04-24 06:13] LABS: Calcium 10.4 mg/dL (8.6-10.3); Magnesium 1.6 mg/dL (1.6-2.6); Potassium 3.5 mEq/L (3.5-5.1)
[2019-04-24] MEDS: Aspirin 81 MG TAB.CHEW PO SCH (07:42)
[2019-04-24] MEDS: *HR* OxyCODONE Immed Rel 5 MG TABLET PO PRN (07:45)
[2019-04-24] MEDS ORDERED: Famotidine 20 MG TABLET PO PRN (08:37)
[2019-04-24] MEDS ORDERED: Metoprolol XL (24 HR) Succ 50 MG TAB.ER.24H PO SCH (09:00)
[2019-04-24] MEDS ORDERED: Furosemide 40 MG/4 ML VIAL IVP SCH (09:00)
--- NOTE | 2019-04-24 09:56 | Internal Med Progress Note ---
Hospitalist Progress Note - Encounter Date of Encounter: 04/24/19 Time of Encounter: 09:53 - Subjective Interval History: Patient seen and examined in the room. She reported that she had fluid in the right ear which was cleared by IV Lasix. However, her high blood pressure and leg swelling persist. He currently has no chest pain, shortness breath, or palpitation. - Exam Vitals: Temp Pulse Resp BP Pulse Ox 98.4 F 112 15 173/93 93 04/24/19 08:28 04/24/19 08:28 04/24/19 08:28 04/24/19 08:28 04/24/19 08:28 Exam: PHYSICAL EXAMINATION: GENERAL APPEARANCE: The patient is alert, oriented and in no acute distress. HEENT: Head is normocephalic. The sinuses are nontender. Pupils are equal and reactive. The nares are patent. Oropharynx clear without lesions. NECK: Supple without lymphadenopathy. HEART: Regular rate and rhythm. LUNGS: No crackles or wheezes are heard. ABDOMEN: Soft, nontender, nondistended with good bowel sounds heard. Inguinal area is normal. EXTREMITIES: 2+ pitting edemaon BLE. NEUROLOGICAL: Gross nonfocal. SKIN: Warm and dry without any rash. - Assessment and Plan (1) Acute on chronic diastolic heart failure Current Visit: Yes Status: Acute Assessment and Plan: 04/23 Patient presents with lower extremity edema, shortness of breath, orthopnea. Chest x-ray reviewed and reveals an incision small pleural effusions and pulmonary edema. Previous echo approximately 6 months ago showed mild diastolic dysfunction with normal EF. We will recheck a limited echo to assess EF. EKG reviewed and is unremarkable. Troponin negative. Treat with Lasix 40 mg IV daily,, cardiac diet, fluid restriction. Continue beta gina. 04/24 Lasix changed to 20 mg BID. Metoprolol dose increased due to high HR and BP. Pending ECHO. (2) Hypertension Current Visit: Yes Status: Acute Assessment and Plan: 04/23 Blood pressure significantly elevated on presentation at 206/92 but has come down to 157/82 spontaneously. Patient states is about what her blood pressures been running over the last several months. Likely worsened by fluid overload. Continue beta gina and start Lasix as above. We will monitor blood pressure and consider up titration of blood pressure medication based on response with Lasix. 04/24 same as above. (3) Chronic kidney disease, stage III (moderate) Current Visit: No Status: Acute Assessment and Plan: Creatinine 1.06 on presentation, GFR is 50. Appears to be baseline for patient. No evidence of a ABDELRAHMAN. Closely monitor renal function with ongoing diuresis. (4) Asthma Current Visit: No Status: Chronic Assessment and Plan: Patient reports history of asthma and on Advair at home. Patient has mild wheezes on exam however I feel like this is more related to pulmonary edema and fluid rather than bronchial inflammation. She reports even doses ointment on the ER but will hold off as this can worsen fluid retention. We will give scheduled bronchodilators. If respiratory status does not improve then we will consider steroids. (5) DVT prophylaxis Current Visit: Yes Status: Acute Assessment and Plan: Heparin 5000 units subcutaneous twice a day - Time Spent with Patient Total time spent is greater than 50% in coordination of care (as documented) at patient's floor/unit and/or counseling patient: Greater than 35 minutes Plan of Care Discussed with: patient Internal Medicine: Result - Labs CBC & Chem 7: 04/24/19 05:07 04/24/19 05:07 Labs: Short CBC 04/23/19 04/24/19 Range/Units 17:02 05:07 WBC 6.3 6.0 (4.3-11.1) K/mcL Hgb 13.0 13.7 (11.5-15.4) g/dL Hct 39.2 41.2 (35.3-44.9) % Plt Count 243 255 (140-400) K/mcL Neutrophils # 3.7 4.9 (1.6-8.9) K/mcL BMP 04/23/19 04/24/19 17:02 05:07 Sodium 137 140 Potassium 4.1 3.5 Chloride 106 103 Carbon Dioxide 24 26 BUN 16 19 Creatinine 1.06 1.22 H Glucose 107 H 211 H Calcium 9.8 10.4 H Cardiac Enzymes 04/23/19 Range/Units 17:02 Troponin I < 0.03 (< 0.04) ng/mL Liver Function 04/23/19 Range/Units 17:02 Total Bilirubin 0.4 (0.3-1.0) mg/dL Direct Bilirubin 0.0 (0.0-0.2) mg/dL AST 18 (13-39) Units/L ALT 11 (7-52) Units/L Alkaline Phosphatase 73 (34-104) Units/L Albumin 4.0 (3.5-5.7) g/dL Urine 04/23/19 Range/Units 17:33 Urine Color Yellow (Yellow) Urine Clarity Clear (Clear) Urine pH 6.0 (5.0-8.0) pH Units Ur Specific [place] 1.007 L (1.010-1.025) Urine Protein Negative (Neg-Trace) mg/dL Urine Glucose (UA) Normal (Normal) mg/dL - ABG Interpretation ABG results: PT/INR, D-dimer PT 10.2 Seconds (9.4-12.1) 04/23/19 17:02 574 ng/mLFEU (0-500) H 04/23/19 20:25 - Impressions Impressions Chest X-Ray 04/23/19 16:38 IMPRESSION: Pulmonary vascular congestion and small right pleural effusion suggest pulmonary edema. D/ / 04/23/2019 17:24:06 [facility] Inter[facility]ting Provider: Roz Bernabe MD Echocardiogram Limited Views 04/23/19 21:07 Impressions: LVEF 65-70%. Mild concentric left ventricular hypertrophy. No segmental dysfunction. Left Ventricular Wall Motion: Rest Echo Findings All wall segments showed normal motion. Findings: Study Quality * Technically adequate exam. Left Ventricle * LVEF 65-70%. * Mild concentric left ventricular hypertrophy. * No segmental dysfunction. Consult Discharge Plan - Plan Referrals: Shashi Garcia MD [Primary Care Provider] - (2) Hypertension Qualifiers: Hypertension type: essential hypertension Qualified Code(s): I10 - Essential (primary) hypertension (4) Asthma Qualifiers: Asthma severity: mild Asthma persistence: unspecified Asthma complication type: unspecified Qualified Code(s): J45.909 - Unspecified asthma, uncomplicated
[2019-04-24] MEDS: Cholecalciferol (D-3) 1,000 UNIT TABLET PO SCH (10:27)
[2019-04-24] MEDS: *HR* HYDROcodone/Acet 5/325 mg TABLET PO PRN ×2 (14:31→21:22)
--- NOTE | 2019-04-24 16:43 | Electrocardiograph Report ---
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
[2019-04-24] MEDS: Furosemide 20 MG/2 ML VIAL IVP SCH (17:18)
[2019-04-24] MEDS: Nicotine 7 MG PATCH.TD24 TD SCH (19:58)
[2019-04-25] MEDS: Acetaminophen 325 MG TABLET PO PRN ×2 (00:05→20:56)
[2019-04-25 02:03] LABS: Calcium 9.6 mg/dL (8.6-10.3); Potassium 3.1 mEq/L (3.5-5.1)
[2019-04-25] MEDS: Ipratropium/Albuterol Neb 3 ML IH SCH ×5 (03:43→20:03)
[2019-04-25] MEDS: *HR* Heparin 5,000 UNIT/ML VIAL SQ SCH ×2 (05:23→19:19)
[2019-04-25] MEDS: Nicotine 7 MG PATCH.TD24 TD SCH (08:57)
[2019-04-25] MEDS: Aspirin 81 MG TAB.CHEW PO SCH (08:57)
[2019-04-25] MEDS: Cholecalciferol (D-3) 1,000 UNIT TABLET PO SCH (08:57)
[2019-04-25] MEDS: Furosemide 20 MG/2 ML VIAL IVP SCH (08:57)
[2019-04-25] MEDS: Metoprolol XL (24 HR) Succ 50 MG TAB.ER.24H PO SCH (08:58)
[2019-04-25] MEDS: *HR* OxyCODONE/APAP 5/325 TABLET PO PRN ×3 (09:14→22:49)
--- NOTE | 2019-04-25 13:15 | Internal Med Progress Note ---
Hospitalist Progress Note - Encounter Date of Encounter: 04/25/19 Time of Encounter: 13:13 - Subjective Interval History: Pt seen and examined in the room. She has been using bathroom more often since being started on Lasix. Her BP has been fluctuating. Has no chest pain, sob, or palpitation. - Exam Vitals: Temp Pulse Resp BP Pulse Ox 98.9 F 90 16 149/82 93 04/25/19 13:04 04/25/19 13:04 04/25/19 13:04 04/25/19 13:04 04/25/19 13:04 Exam: PHYSICAL EXAMINATION: GENERAL APPEARANCE: The patient is alert, oriented and in no acute distress. HEENT: Head is normocephalic. The sinuses are nontender. Pupils are equal and reactive. The nares are patent. Oropharynx clear without lesions. NECK: Supple without lymphadenopathy. HEART: Regular rate and rhythm. LUNGS: No crackles or wheezes are heard. ABDOMEN: Soft, nontender, nondistended with good bowel sounds heard. Inguinal area is normal. EXTREMITIES: 2+ pitting edemaon BLE. NEUROLOGICAL: Gross nonfocal. SKIN: Warm and dry without any rash. - Assessment and Plan (1) Acute on chronic diastolic heart failure Current Visit: Yes Status: Acute Assessment and Plan: 04/23 Patient presents with lower extremity edema, shortness of breath, orthopnea. Chest x-ray reviewed and reveals an incision small pleural effusions and pulmonary edema. Previous echo approximately 6 months ago showed mild diastolic dysfunction with normal EF. We will recheck a limited echo to assess EF. EKG reviewed and is unremarkable. Troponin negative. Treat with Lasix 40 mg IV daily,, cardiac diet, fluid restriction. Continue beta gina. 04/24 Lasix changed to 20 mg BID. Metoprolol dose increased due to high HR and BP. Pending ECHO. 04/25 ECHO showed preserved EF and mild LVH. On Lasix 20 mg BID. BP not optimally controlled. SBP 140-160. started ACEi at low dose today. Cr stable at 1.2 but BUN has been elevated comparing to yesterday. Change IV lasix to 20 mg daily oral. (2) Hypertension Current Visit: Yes Status: Acute Assessment and Plan: 04/23 Blood pressure significantly elevated on presentation at 206/92 but has come down to 157/82 spontaneously. Patient states is about what her blood pressures been running over the last several months. Likely worsened by fluid overload. Continue beta gina and start Lasix as above. We will monitor blood pressure and consider up titration of blood pressure medication based on response with Lasix. 04/24 same as above. 04/25 Not well controlled so far. Add ACEi in addition to BB and Lasix. (3) Chronic kidney disease, stage III (moderate) Current Visit: No Status: Acute Assessment and Plan: Creatinine 1.06 on presentation, GFR is 50. Recently started on IV lasix 20 mg bid. Cr 1.21 today. Lasix changed to 20 mg daily oral. Closely monitor renal function with ongoing diuresis. (4) Asthma Current Visit: No Status: Chronic Assessment and Plan: Patient reports history of asthma and on Advair at home. Patient has mild wheezes on exam however I feel like this is more related to pulmonary edema and fluid rather than bronchial inflammation. She reports even doses ointment on the ER but will hold off as this can worsen fluid retention. We will give scheduled bronchodilators. If respiratory status does not improve then we will consider steroids. (5) DVT prophylaxis Current Visit: Yes Status: Acute Assessment and Plan: Heparin 5000 units subcutaneous twice a day - Time Spent with Patient Total time spent is greater than 50% in coordination of care (as documented) at patient's floor/unit and/or counseling patient: Greater than 35 minutes Plan of Care Discussed with: patient Internal Medicine: Result - Labs CBC & Chem 7: 04/24/19 05:07 04/25/19 01:17 Labs: BMP 04/25/19 01:17 Sodium 140 Potassium 3.1 L Chloride 102 Carbon Dioxide 28 BUN 28 H Creatinine 1.21 H Glucose 117 H Calcium 9.6 - ABG Interpretation ABG results: PT/INR, D-dimer PT 10.2 Seconds (9.4-12.1) 04/23/19 17:02 574 ng/mLFEU (0-500) H 04/23/19 20:25 Consult Discharge Plan - Plan Referrals: Shashi Garcia MD [Primary Care Provider] - 04/30/19 9:15 am (2) Hypertension Qualifiers: Hypertension type: essential hypertension Qualified Code(s): I10 - Essential (primary) hypertension (4) Asthma Qualifiers: Asthma severity: mild Asthma persistence: unspecified Asthma complication type: unspecified Qualified Code(s): J45.909 - Unspecified asthma, uncomplicat ed
[2019-04-26] MEDS: Ipratropium/Albuterol Neb 3 ML IH SCH ×4 (00:50→11:36)
[2019-04-26] MEDS ORDERED: traMADol 50 MG TABLET PO ONE (02:41)
[2019-04-26 03:51] LABS: Calcium 10.1 mg/dL (8.6-10.3); Potassium 3.9 mEq/L (3.5-5.1)
[2019-04-26] MEDS: *HR* Heparin 5,000 UNIT/ML VIAL SQ SCH (05:38)
[2019-04-26] MEDS ORDERED: Furosemide 20 MG TABLET PO PRN (07:47)
[2019-04-26] MEDS: Nicotine 7 MG PATCH.TD24 TD SCH (08:07)
[2019-04-26] MEDS: *HR* OxyCODONE/APAP 5/325 TABLET PO PRN (08:08)
[2019-04-26] MEDS: Cholecalciferol (D-3) 1,000 UNIT TABLET PO SCH (08:08)
[2019-04-26] MEDS: Metoprolol XL (24 HR) Succ 50 MG TAB.ER.24H PO SCH (08:08)
[2019-04-26] MEDS: Aspirin 81 MG TAB.CHEW PO SCH (08:08)
[2019-04-26] MEDS ORDERED: Furosemide 20 MG TABLET PO SCH (09:00)
--- NOTE | 2019-04-26 09:42 | Internal Med Progress Note ---
Hospitalist Progress Note - Encounter Date of Encounter: 04/26/19 Time of Encounter: 09:40 - Subjective Interval History: Pt seen and examined in the room. Reported leg swelling is improving. - Exam Vitals: Temp Pulse Resp BP Pulse Ox 97.9 F 85 16 124/72 93 04/26/19 08:20 04/26/19 08:20 04/26/19 08:20 04/26/19 08:20 04/26/19 08:20 Exam: PHYSICAL EXAMINATION: GENERAL APPEARANCE: The patient is alert, oriented and in no acute distress. HEENT: Head is normocephalic. The sinuses are nontender. Pupils are equal and reactive. The nares are patent. Oropharynx clear without lesions. NECK: Supple without lymphadenopathy. HEART: Regular rate and rhythm. LUNGS: No crackles or wheezes are heard. ABDOMEN: Soft, nontender, nondistended with good bowel sounds heard. Inguinal area is normal. EXTREMITIES: 1+ pitting edemaon BLE. NEUROLOGICAL: Gross nonfocal. SKIN: Warm and dry without any rash. - Assessment and Plan (1) Acute on chronic diastolic heart failure Current Visit: Yes Status: Acute Assessment and Plan: 04/23 Patient presents with lower extremity edema, shortness of breath, orthopnea. Chest x-ray reviewed and reveals an incision small pleural effusions and pulmonary edema. Previous echo approximately 6 months ago showed mild diastolic dysfunction with normal EF. We will recheck a limited echo to assess EF. EKG reviewed and is unremarkable. Troponin negative. Treat with Lasix 40 mg IV daily,, cardiac diet, fluid restriction. Continue beta gina. 04/24 Lasix changed to 20 mg BID. Metoprolol dose increased due to high HR and BP. Pending ECHO. 04/25 ECHO showed preserved EF and mild LVH. On Lasix 20 mg BID. BP not optimally controlled. SBP 140-160. started ACEi at low dose today. Cr stable at 1.2 but BUN has been elevated comparing to yesterday. Change IV lasix to 20 mg daily oral. 04/26 Cr stable, leg swelling improving. Anticipated DC in am. (2) Hypertension Current Visit: Yes Status: Acute Assessment and Plan: 04/23 Blood pressure significantly elevated on presentation at 206/92 but has come jeremy n to 157/82 spontaneously. Patient states is about what her blood pressures been running over the last several months. Likely worsened by fluid overload. Continue beta gina and start Lasix as above. We will monitor blood pressure and consider up titration of blood pressure medication based on response with Lasix. 04/24 same as above. 04/25 Not well controlled so far. Add ACEi in addition to BB and Lasix. 04/26 BP well controlled. (3) Chronic kidney disease, stage III (moderate) Current Visit: No Status: Acute Assessment and Plan: Creatinine 1.06 on presentation, GFR is 50. Recently started on IV lasix 20 mg bid. Cr 1.1 today. Lasix changed to 20 mg daily oral. Closely monitor renal function with ongoing diuresis. (4) Asthma Current Visit: No Status: Chronic Assessment and Plan: Patient reports history of asthma and on Advair at home. Patient has mild wheezes on exam however I feel like this is more related to pulmonary edema and fluid rather than bronchial inflammation. She reports even doses ointment on the ER but will hold off as this can worsen fluid retention. We will give scheduled bronchodilators. (5) DVT prophylaxis Current Visit: Yes Status: Acute Assessment and Plan: Heparin 5000 units subcutaneous twice a day - Time Spent with Patient Total time spent is greater than 50% in coordination of care (as documented) at patient's floor/unit and/or counseling patient: Greater than 35 minutes Plan of Care Discussed with: patient Internal Medicine: Result - Labs CBC & Chem 7: 04/24/19 05:07 04/26/19 02:59 Labs: BMP 04/26/19 02:59 Sodium 141 Potassium 3.9 Chloride 104 Carbon Dioxide 26 BUN 24 H Creatinine 1.13 Glucose 99 Calcium 10.1 - ABG Interpretation ABG results: PT/INR, D-dimer PT 10.2 Seconds (9.4-12.1) 04/23/19 17:02 574 ng/mLFEU (0-500) H 04/23/19 20:25 - Impressions Impressions Chest X-Ray 04/23/19 16:38 IMPRESSION: Pulmonary vascular congestion and small right pleural effusion suggest pulmonary edema. D/ / 04/23/2019 17:24:06 Roz Bernabe MD / [facility] Interpreting Provider: Roz Bernabe MD Consult Discharge Plan - Plan Referrals: Shashi Garcia MD [Primary Care Provider] - 04/30/19 9:15 am (2) Hypertension Qualifiers: Hypertension type: essential hypertension Qualified Code(s): I10 - Essential (primary) hypertension (4) Asthma Qualifiers: Asthma severity: mild Asthma persistence: unspecified Asthma complication type: unspecified Qualified Code(s): J45.909 - Unspecified asthma, uncom plicated
[2019-04-26 11:01] VITALS: BP 163/67
--- NOTE | 2019-04-26 15:01 | Discharge Summary ---
- NOTES TO OUTPATIENT PROVIDER Notes to Outpatient Provider: f/u with PCP within one week.. Orders not resulted at time of discharge: Pending orders 04/23/19 17:02 Culture,Blood [BC] Stat 04/27/19 04:00 BMP [Basic Metabolic Panel] AM 0400 Date of Encounter: 04/26/19 Time of Encounter: 14:57 - Discharge Diagnosis (1) Acute on chronic diastolic heart failure Priority: Primary Status: Acute (2) Hypertension Priority: Secondary Status: Chronic Qualifiers: Hypertension type: essential hypertension Qualified Code(s): I10 - Essential (primary) hypertension (3) Chronic kidney disease, stage III (moderate) Priority: Secondary Status: Acute (4) Asthma Priority: Secondary Status: Chronic Qualifiers: Asthma severity: mild Asthma persistence: unspecified Asthma complication type: unspecified Qualified Code(s): J45.909 - Unspecified asthma, uncomplicated (5) DVT prophylaxis Priority: Primary Status: Acute Hospital course: Ms. Nagi Walters is a 78 year old female with history of hypertension, asthma presents with elevated blood pressure. Patient states that over the last several months her blood pressure has been elevated. He states he has seen her primary care as well as a automatic equipment technician for this and they have been changing her medications around and the medications helped for short period of time however her blood pressure then begins to rise. She is also had lower extremity swelling that has not improved and over the last several days she has had worsening shortness of breath. She states her shortness of breath is worse with activity and when lying flat. She denies any chest pain, abdominal pain, nausea or vomiting. ECHO showed LVEF 65-70%, mild concentric left ventricular hypertrophy, no segmental dysfunction. Heart failure with preserved EF was diagnosed. Dose of home meds metoprolol was increased and lisinopril was started. Lasix was given initially as IV and later changed to oral. Her volume status has improved and BP was controlled. Pt will be discharged home today and f/u with PCP within a week. Discharge discussed with: patient Time spent discussing smoking cessation with patient: more than 10 minutes - Time Spent with Patient Total time spent providing and/or coordinating discharge services: Time spent: Greater than 30 minutes - Discharge Medications Prescriptions: New Furosemide [Lasix] 20 mg PO DAILY PRN #30 tablet PRN Reason: Edema Metoprolol XL (24 HR) Succ [Toprol Xl] 75 mg PO DAILY #75 tab.er.24h Lisinopril [Zestril] 5 mg PO DAILY #30 tablet Continued Albuterol Sulfate [Albuterol Inhaler] 2 puff IH Q4HR PRN PRN Reason: Shortness Of Breath Ergocalciferol (VITAMIN D2) [Vitamin D2] 2,000 unit PO DAILY Aspirin 81 mg PO DAILY Acetaminophen [Tylenol] 325 - 650 mg PO Q6HR PRN PRN Reason: Pain Potassium Chloride [K-Tab ER] 10 meq PO DAILY OxyCODONE/APAP 5/325 [Percocet 5/325 MG] 1 each PO Q8HR PRN PRN Reason: Pain raNITIdine HCl [Zantac] 150 mg PO DAILY PRN PRN Reason: Indigestion L. Acidophilus/Pectin, Brillion [Acidophilus Probiotic Capsule] 1 cap PO DAILY Melatonin 10 mg PO HS PRN PRN Reason: Sleep Omeprazole [PriLOSEC] 40 mg PO DAILY Vitamin B Complex [Balanced B-50] 1 tab PO DAILY hydrALAZINE [HydrALAZINE] 50 mg PO QAM hydrALAZINE [HydrALAZINE] 25 mg PO HS Loratadine [Allergy Relief] 10 mg PO BID Discontinued Metoprolol Succinate [Toprol Xl] 50 mg PO DAILY Home Medications: Albuterol Sulfate [Albuterol Inhaler] 2 puff IH Q4HR PRN 05/17/16 [History] Aspirin 81 mg PO DAILY 05/17/16 [History] Ergocalciferol (VITAMIN D2) [Vitamin D2] 2,000 unit PO DAILY 05/17/16 [History] Acetaminophen [Tylenol] 325 - 650 mg PO Q6HR PRN 11/22/17 [History] Potassium Chloride [K-Tab ER] 10 meq PO DAILY 04/24/19 [History] L. Acidophilus/Pectin, Brillion [Acidophilus Probiotic Capsule] 1 cap PO DAILY 04/25/19 [History] Loratadine [Allergy Relief] 10 mg PO BID 04/25/19 [History] Melatonin 10 mg PO HS PRN 04/25/19 [History] Omeprazole [PriLOSEC] 40 mg PO DAILY 04/25/19 [History] OxyCODONE/APAP 5/325 [Percocet 5/325 MG] 1 each PO Q8HR PRN 04/25/19 [History] Vitamin B Complex [Balanced B-50] 1 tab PO DAILY 04/25/19 [History] hydrALAZINE [HydrALAZINE] 25 mg PO HS 04/25/19 [History] hydrALAZINE [HydrALAZINE] 50 mg PO QAM 04/25/19 [History] raNITIdine HCl [Zantac] 150 mg PO DAILY PRN 04/25/19 [History] Furosemide [Lasix] 20 mg PO DAILY PRN #30 tablet 04/26/19 [Rx] Lisinopril [Zestril] 5 mg PO DAILY #30 tablet 04/26/19 [Rx] Metoprolol XL (24 HR) Succ [Toprol Xl] 75 mg PO DAILY #75 tab.er.24h 04/26/19 [Rx] Allergies/Adverse Reactions: Allergy/AdvReac Type Severity Reaction Status Date / Time fish oil Allergy Rash Verified 04/23/19 19:39 influenza virus vaccine ts Allergy Anaphylaxis Verified 04/23/19 19:39 [id number] (36 mos,up) [From Fluarix] mannitol [From Reclast] Allergy Hives Verified 04/23/19 19:39 Neomycin Allergy Rash Verified 04/23/19 19:39 NSAIDS (Non-Steroidal Allergy Rash Verified 04/23/19 19:39 Anti-Inflamma Penicillins [PCN] Allergy Rash Verified 04/23/19 19:39 sulfamethoxazole Allergy Rash Verified 04/23/19 19:39 [From Bactrim] trimethoprim [From Bactrim] Allergy Rash Verified 04/23/19 19:39 water for injection,sterile Allergy Hives Verified 04/23/19 19:39 [From Reclast] zoledronic acid Allergy Hives Verified 04/23/19 19:39 [From Reclast] simvastatin [From Zocor] AdvReac Cramping Verified 04/23/19 19:39 of the Muscles Date of admission: 04/25/19 13:42 Primary care physician: Shashi Garcia MD Consults: 04/24/19 09:23 Consult to Nurse Navigator [CONS] Routine Comment: CHF Anticipated date of discharge: 04/26/19 - Constitutional Vitals: Temp Pulse Resp BP Pulse Ox 99.4 F 87 16 163/67 99 04/26/19 10:44 04/26/19 10:44 04/26/19 11:25 04/26/19 10:44 04/26/19 11:25 General appearance: Present: A&O X 3, pleasant, no acute distress Exam: PHYSICAL EXAMINATION: GENERAL APPEARANCE: The patient is alert, oriented and in no acute distress. HEENT: Head is normocephalic. The sinuses are nontender. Pupils are equal and reactive. The nares are patent. Oropharynx clear without lesions. NECK: Supple without lymphadenopathy. HEART: Regular rate and rhythm. LUNGS: No crackles or wheezes are heard. ABDOMEN: Soft, nontender, nondistended with good bowel sounds heard. Inguinal area is normal. EXTREMITIES: 1+ pitting edemaon BLE. NEUROLOGICAL: Gross nonfocal. SKIN: Warm and dry without any rash. - Patient Status Disposition: Home, Self-Care Condition: Fair Functional capacity at discharge: independent ambulation Overall status at discharge: patient is progressing back to baseline - Discharge Instructions Follow Up With: Shashi Garcia MD [Primary Care Provider] - 04/30/19 9:15 am - Diet and Activity Activity: resume usual activities as tolerated Diet: low fat, low cholesterol, low salt diet
== END 2019-04-26 15:33 | disposition home or self-care (01) | DRG 291 ==
LOC: EMEROOARM 16:20 → 3BNU 16:20
PROVIDERS: ADMIT Family Medicine; ATTEND Family Medicine

== ENCOUNTER 2020-07-13 23:41 | Inpatient (IN) ==
[2020-07-13] MEDS ORDERED: Morphine Sulfate Immed Rel 15 MG TABLET PO STA (23:49)
[2020-07-13] MEDS ORDERED: Ondansetron ODT 4 MG TAB.RAPDIS SL ONE (23:49)
[2020-07-13] MEDS ORDERED: Td (TENIVAC) Vaccine 0.5 ML VIAL IM ONE (23:49)
[2020-07-14] MEDS ORDERED: Lidocaine/EPI 1:100k 1% 30 ML VIAL INFILT ONE (01:05)
[2020-07-14] MEDS ORDERED: Lidocaine/EPI 1:100k 1% 50 ML VIAL ONE (01:09)
[2020-07-14] MEDS ORDERED: Naloxone 0.4 MG/ML INJ IVP PRN (03:40)
[2020-07-14] MEDS ORDERED: Ondansetron ODT 4 MG TAB.RAPDIS SL PRN (03:40)
[2020-07-14] MEDS ORDERED: Melatonin 3 MG TABLET PO PRN (03:43)
[2020-07-14] MEDS ORDERED: Furosemide 20 MG TABLET PO PRN (03:43)
[2020-07-14 05:01] LABS: Basophils % 0.4 %; Eosinophils # 0.1 K/mcL (0.0-0.6); Eosinophils % 0.5 %; Hemoglobin 12.4 g/dL (11.5-15.4); Immature Granulocytes % 0.5 % (0-4); Lymphocytes # 1.6 K/mcL (0.6-4.6); Lymphocytes % 15.9 %; Mean Corpuscular HGB Conc 31.8 g/dL (31.6-35.5); Mean Corpuscular Hemoglobin 30.4 pg (28.0-33.3); Mean Corpuscular Volume 95.6 fL (83.0-100.0); Mean Platelet Volume 10.1 fL (9.4-12.4); Monocytes # 0.7 K/mcL (0.0-1.3); Monocytes % 6.9 %; Neutrophils # 7.7 K/mcL (1.6-8.9); Platelet Count 219 K/mcL (140-400); Red Blood Count 4.08 M/mcL (3.82-4.97); Red Cell Distribution Width 12.8 % (11.5-14.5); Segmented Neutrophils % 75.8 %; White Blood Count 10.1 K/mcL (4.3-11.1)
[2020-07-14 05:07] LABS: INR 0.9; Prothrombin Time 10.7 Seconds (9.4-12.1)
[2020-07-14 05:10] LABS: Activated Partial Thrombo Time 28.7 Seconds (26.0-36.0)
[2020-07-14 05:19] LABS: Alanine Aminotransferase 14 Units/L (7-52); Albumin/Globulin Ratio 1.7 (1.1-2.2); Alkaline Phosphatase 75 Units/L (34-104); Aspartate Amino Transferase 25 Units/L (13-39); BUN/Creatinine Ratio 21 (6-26); Bilirubin,Total 0.5 mg/dL (0.3-1.0); Blood Urea Nitrogen 22 mg/dL (8-23); Calcium 9.4 mg/dL (8.6-10.3); Carbon Dioxide 25 mEq/L (23-29); Chloride 105 mEq/L (98-107); Globulin 2.3 g/dL (2.4-3.5); Glucose 109 mg/dL (70-105); Osmolality,Calculated 294 (280-300); Potassium 4.1 mEq/L (3.5-5.1); Sodium 140 mEq/L (136-145); Total Protein 6.3 g/dL (6.4-8.9); eGFR For African Americans > 60 (> 60); eGFR For Non-African Americans 52 (> 60)
[2020-07-14] MEDS: Aspirin 81 MG TAB.CHEW PO SCH (08:05)
[2020-07-14] MEDS: Metoprolol XL (24 HR) Succ 50 MG TAB.ER.24H PO SCH (08:06)
[2020-07-14] MEDS ORDERED: predniSONE 20 MG TABLET PO SCH (10:00)
[2020-07-14] MEDS: Ipratropium/Albuterol Neb 3 ML IH SCH ×6 (10:04→23:25)
[2020-07-14] MEDS: Budesonide/Formoterol 160/4.5 1 PUFF INH IH SCH ×2 (10:05→19:29)
[2020-07-14] MEDS: predniSONE 20 MG TABLET PO SCH (10:16)
[2020-07-14] MEDS ORDERED: Perflutren Lipid Microsphere 1.3 ML in 0.9 % Sodium Chloride 8.7 ML IVP PRN (10:48)
[2020-07-14] MEDS ORDERED: Ipratropium/Albuterol Neb 3 ML IH SCH (12:00)
[2020-07-14] MEDS ORDERED: hydrALAZINE 25 MG TABLET PO SCH (21:00)
[2020-07-15 02:13] LABS: Basophils % 0.1 %; Hematocrit 36.9 % (35.3-44.9); Hemoglobin 11.9 g/dL (11.5-15.4); Immature Granulocytes % 0.2 % (0-4); Lymphocytes # 1.4 K/mcL (0.6-4.6); Lymphocytes % 16.4 %; Mean Corpuscular HGB Conc 32.2 g/dL (31.6-35.5); Mean Corpuscular Hemoglobin 31.5 pg (28.0-33.3); Mean Corpuscular Volume 97.6 fL (83.0-100.0); Mean Platelet Volume 10.1 fL (9.4-12.4); Monocytes # 0.6 K/mcL (0.0-1.3); Monocytes % 7.3 %; Neutrophils # 6.7 K/mcL (1.6-8.9); Platelet Count 215 K/mcL (140-400); Red Blood Count 3.78 M/mcL (3.82-4.97); Red Cell Distribution Width 12.8 % (11.5-14.5); White Blood Count 8.8 K/mcL (4.3-11.1)
[2020-07-15 02:31] LABS: Calcium 9.6 mg/dL (8.6-10.3); Magnesium 1.6 mg/dL (1.6-2.6); Phosphorous 4.1 mg/dL (2.7-4.5); Potassium 4.4 mEq/L (3.5-5.1)
[2020-07-15] MEDS: Ipratropium/Albuterol Neb 3 ML IH SCH ×6 (04:05→23:45)
[2020-07-15] MEDS: Budesonide/Formoterol 160/4.5 1 PUFF INH IH SCH ×2 (07:32→19:56)
[2020-07-15] MEDS: predniSONE 20 MG TABLET PO SCH (09:02)
[2020-07-15] MEDS: Metoprolol XL (24 HR) Succ 50 MG TAB.ER.24H PO SCH (09:02)
[2020-07-15] MEDS: Aspirin 81 MG TAB.CHEW PO SCH (09:02)
[2020-07-15] MEDS ORDERED: hydrALAZINE 25 MG TABLET PO SCH (12:01)
[2020-07-15] MEDS ORDERED: D5% in Water 1,000 ML IVC PRN ×2 (14:02→18:07)
[2020-07-15] MEDS ORDERED: *HR* Dextrose 50 % in Water (Vial) 50 ML VIAL IVP PRN ×2 (14:02→18:07)
[2020-07-15] MEDS ORDERED: Dextrose Gel 15 GM/37.5 ML TUBE PO PRN ×4 (14:02→18:07)
[2020-07-15] MEDS ORDERED: *HR* Propofol 200 MG/20 ML VIAL IVP ONE ×2 (15:01→17:00)
[2020-07-15] MEDS ORDERED: Lidocaine -MPF 2% 2 ML VIAL ONE (15:01)
[2020-07-15] MEDS ORDERED: *HR* FentaNYL (PF) 100 MCG/2 ML VIAL ONE (15:01)
[2020-07-15] MEDS ORDERED: Ondansetron 4 MG/2 ML VIAL ONE (15:03)
[2020-07-15] MEDS ORDERED: *HR* Succinylcholine 200 MG/10 ML VIAL IVP ONE (15:22)
[2020-07-15] MEDS ORDERED: Ropivacaine/PF 0.5% 30 ML VIAL ONE (15:25)
[2020-07-15] MEDS ORDERED: Ondansetron 4 MG/2 ML VIAL IVP ONE (15:28)
[2020-07-15] MEDS ORDERED: *HR* OxyCODONE Immed Rel 5 MG TABLET PO PRN (15:28)
[2020-07-15] MEDS ORDERED: *HR* HYDROmorphone PF 0.5 MG/0.5 ML SYRINGE IVP PRN (15:28)
[2020-07-15] MEDS ORDERED: Clindamycin 900 MG/50 ML 900 MG/50 ML IV.SOLN IVPB ONE (15:36)
[2020-07-15] MEDS ORDERED: Dexamethasone 4 MG/ML VIAL ONE (16:14)
[2020-07-15] MEDS ORDERED: *HR* PHENYLEPHRINE 1,000 MCG/10 ML SYRINGE IVP ONE (16:19)
[2020-07-15] MEDS ORDERED: Ethanol\\Acetic Acid\\Na Ace\\Ben 1,000 ML IRRIG.SOLN IR ONE (16:36)
[2020-07-15] MEDS ORDERED: Insulin LISPRO 300 UNITS/3 ML VIAL SQ SCH (18:00)
[2020-07-15] MEDS ORDERED: Ondansetron 4 MG/2 ML VIAL IVP PRN (18:07)
[2020-07-15] MEDS ORDERED: CeFAZolin 2 GM/120 ML BAG IVPB SCH (18:07)
[2020-07-15] MEDS ORDERED: MOM Conc 10 ML UD.LIQ PO PRN (18:07)
[2020-07-15] MEDS ORDERED: Furosemide 40 MG TABLET PO PRN (18:07)
[2020-07-15] MEDS ORDERED: Sennosides 8.6 MG TABLET PO PRN (18:07)
[2020-07-15] MEDS ORDERED: Melatonin 3 MG TABLET PO PRN (18:07)
[2020-07-15] MEDS: hydrALAZINE 25 MG TABLET PO SCH (20:14)
[2020-07-15 20:48] LABS: Hemoglobin 10.9 g/dL (11.5-15.4)
[2020-07-15] MEDS ORDERED: hydrALAZINE 25 MG TABLET PO PRN (21:00)
[2020-07-15] MEDS: Ringers Solution, Lactated 1,000 ML IVC SCH (23:55)
[2020-07-15] MEDS: Clindamycin 900 MG/50 ML 900 MG/50 ML IV.SOLN IVPB SCH (23:55)
[2020-07-16] MEDS: Insulin LISPRO 300 UNITS/3 ML VIAL SQ SCH ×3 (00:03→11:52)
[2020-07-16] MEDS: Ipratropium/Albuterol Neb 3 ML IH SCH ×6 (03:33→23:24)
[2020-07-16 04:03] LABS: Calcium 9.1 mg/dL (8.6-10.3); Potassium 4.1 mEq/L (3.5-5.1)
[2020-07-16] MEDS: Budesonide/Formoterol 160/4.5 1 PUFF INH IH SCH ×2 (07:35→23:25)
[2020-07-16] MEDS: Aspirin 81 MG TAB.CHEW PO SCH (08:23)
[2020-07-16] MEDS: Clindamycin 900 MG/50 ML 900 MG/50 ML IV.SOLN IVPB SCH (08:24)
[2020-07-16] MEDS: hydrALAZINE 25 MG TABLET PO SCH ×2 (08:27→22:23)
[2020-07-16] MEDS: Ringers Solution, Lactated 1,000 ML IVC SCH (08:38)
[2020-07-16] MEDS ORDERED: predniSONE 20 MG TABLET PO SCH (09:00)
[2020-07-16] MEDS: *HR* OxyCODONE/APAP 5/325 TABLET PO PRN (11:51)
[2020-07-16] MEDS ORDERED: 0.9 % Sodium Chloride 500 ML IVC SCH (17:00)
[2020-07-16 17:23] LABS: Hematocrit 31.2 % (35.3-44.9); Hemoglobin 10.1 g/dL (11.5-15.4)
[2020-07-16] MEDS: *HR* Heparin 5,000 UNIT/ML VIAL SQ SCH (17:34)
[2020-07-16] MEDS ORDERED: D5% in Water 1,000 ML IVC PRN ×2 (19:48→19:49)
[2020-07-16] MEDS ORDERED: Dextrose Gel 15 GM/37.5 ML TUBE PO PRN ×4 (19:48→19:49)
[2020-07-16] MEDS ORDERED: *HR* Dextrose 50 % in Water (Vial) 50 ML VIAL IVP PRN ×2 (19:48→19:49)
[2020-07-16] MEDS ORDERED: Insulin LISPRO 300 UNITS/3 ML VIAL SQ SCH (21:00)
[2020-07-16] MEDS: *HR* OxyCODONE Immed Rel 5 MG TABLET PO PRN (22:23)
[2020-07-17 01:38] LABS: Basophils % 0.1 %; Hematocrit 28.5 % (35.3-44.9); Hemoglobin 9.3 g/dL (11.5-15.4); Immature Granulocytes % 0.4 % (0-4); Lymphocytes # 1.6 K/mcL (0.6-4.6); Lymphocytes % 16.9 %; Mean Corpuscular HGB Conc 32.6 g/dL (31.6-35.5); Mean Corpuscular Hemoglobin 31.1 pg (28.0-33.3); Mean Corpuscular Volume 95.3 fL (83.0-100.0); Mean Platelet Volume 10.3 fL (9.4-12.4); Monocytes # 0.7 K/mcL (0.0-1.3); Monocytes % 6.9 %; Neutrophils # 7.4 K/mcL (1.6-8.9); Platelet Count 205 K/mcL (140-400); Red Blood Count 2.99 M/mcL (3.82-4.97); Red Cell Distribution Width 12.9 % (11.5-14.5); Segmented Neutrophils % 75.7 %; White Blood Count 9.7 K/mcL (4.3-11.1)
[2020-07-17 02:00] LABS: Magnesium 1.7 mg/dL (1.6-2.6); Phosphorous 2.4 mg/dL (2.7-4.5); Potassium 3.8 mEq/L (3.5-5.1)
[2020-07-17] MEDS: Ipratropium/Albuterol Neb 3 ML IH SCH ×3 (03:43→11:23)
[2020-07-17] MEDS: *HR* Heparin 5,000 UNIT/ML VIAL SQ SCH (06:03)
[2020-07-17] MEDS: Budesonide/Formoterol 160/4.5 1 PUFF INH IH SCH (07:20)
[2020-07-17] MEDS: Insulin LISPRO 300 UNITS/3 ML VIAL SQ SCH ×2 (07:35→11:19)
[2020-07-17] MEDS: hydrALAZINE 25 MG TABLET PO SCH (08:14)
[2020-07-17] MEDS: *HR* OxyCODONE Immed Rel 5 MG TABLET PO PRN (08:16)
[2020-07-17] MEDS: Aspirin 81 MG TAB.CHEW PO SCH (08:17)
[2020-07-17] MEDS ORDERED: Cholecalciferol (D-3) 1,000 UNIT (25MCG) TABLET PO SCH (09:00)
[2020-07-17] MEDS ORDERED: predniSONE 20 MG TABLET PO SCH (09:00)
[2020-07-17] MEDS ORDERED: Metoprolol XL (24 HR) Succ 25 MG TAB.ER.24H PO SCH (09:00)
[2020-07-17 11:02] VITALS: BP 103/70
[2020-07-17] MEDS: *HR* OxyCODONE/APAP 5/325 TABLET PO PRN (12:13)
== END 2020-07-17 12:28 | DRG 493 ==
LOC: EMEROOARM 23:41 → 3NENU 23:41 → SUATTDRO 07-14 13:53
PROVIDERS: ADMIT Internal Medicine; ATTEND Internal Medicine